=== PATIENT | female | born 2000 | race African-American/Black ===

== ENCOUNTER 2020-03-23 20:21 | Emergency (ER) | payer OTHER ==
[~2020-03-23] VITALS: Ht 160 cm; Wt 53.9 kg
[2020-03-23] MEDS ORDERED: PREN1TAB11 PO (20:25)
[2020-03-23] MEDS ORDERED: ONDANSETRON 4 MG ORAL DISINTEGRATING TAB PO ONE (21:15)
[2020-03-23 21:29] LABS: BASO # 0.1 10^3/uL (0.0-0.2); BASO % 0.4 % (0.0-1.0); EOS # 0.2 10^3/uL (0.0-0.5); EOS % 1.7 % (0.0-3.0); HEMATOCRIT 37.5 % (36.0-47.0); HEMOGLOBIN 12.1 g/dl (12.0-15.5); LYMPH # 2.2 10^3/uL (1.5-5.0); LYMPH % 19.5 % (24.0-44.0); MEAN CORPUSCULAR HEMOGLOBIN 30.1 pg (27.0-33.0); MEAN CORPUSCULAR HGB CONC 32.3 g/dl (32.0-36.5); MEAN CORPUSCULAR VOLUME 93.3 fl (80.0-96.0); MONO # 0.8 10^3/uL (0.0-0.8); MONO % 6.9 % (0.0-5.0); NEUTROPHILS # 8.1 10^3/uL (1.5-8.5); NEUTROPHILS % 71.3 % (36.0-66.0); PLATELET COUNT, AUTOMATED 304 10^3/uL (150-450); RED BLOOD COUNT 4.02 10^6/uL (4.00-5.40); WHITE BLOOD COUNT 11.3 10^3/uL (4.0-10.0)
[2020-03-23 22:23] LABS: ALBUMIN 3.8 GM/DL (3.2-5.2); ALT/SGPT 16 U/L (12-78); BILIRUBIN,TOTAL 0.7 MG/DL (0.2-1.0); BLOOD UREA NITROGEN 8 MG/DL (7-18); CALCIUM LEVEL 9.5 MG/DL (8.5-10.1); CARBON DIOXIDE LEVEL 26 MEQ/L (21-32); CHLORIDE LEVEL 106 MEQ/L (98-107); CREATININE FOR GFR 0.67 MG/DL (0.55-1.30); GLUCOSE, FASTING 84 MG/DL (70-100); HCG, SERUM QUANTITATIVE 68643 MIU/ML; POTASSIUM SERUM 3.5 MEQ/L (3.5-5.1); SODIUM LEVEL 137 MEQ/L (136-145); TOTAL PROTEIN 7.5 GM/DL (6.4-8.2)
[2020-03-23] MEDS ORDERED: ONDA4TAB6 PO (22:31)
[2020-03-23 22:39] VITALS: BP 109/55
== END 2020-03-23 22:40 | disposition home or self-care (01) ==
LOC: M ED 20:21
DX: O21.9 Vomiting of pregnancy, unspecified (principal); Z3A.08 8 weeks gestation of pregnancy
CPT/HCPCS: 80053; 81001; 84702; 85025; 99283; Q0162

== ENCOUNTER 2020-05-31 07:19 | Emergency (ER) | payer OTHER ==
[~2020-05-31] VITALS: Ht 160 cm; Wt 54.1 kg
[~2020-05-31 07:19] MED LIST: ONDA4TAB6 PO; PREN1TAB11 PO
[2020-05-31] MEDS ORDERED: NS 1,000 ML IV ONE (08:00)
[2020-05-31] MEDS ORDERED: FIORICET TAB PO ONE (08:00)
[2020-05-31 08:16] LABS: BASO % 0.4 % (0.0-1.0); EOS # 0.3 10^3/uL (0.0-0.5); EOS % 2.9 % (0.0-3.0); HEMATOCRIT 34.3 % (36.0-47.0); HEMOGLOBIN 11.2 g/dl (12.0-15.5); LYMPH # 1.8 10^3/uL (1.5-5.0); LYMPH % 15.6 % (24.0-44.0); MEAN CORPUSCULAR HEMOGLOBIN 30.9 pg (27.0-33.0); MEAN CORPUSCULAR HGB CONC 32.7 g/dl (32.0-36.5); MEAN CORPUSCULAR VOLUME 94.8 fl (80.0-96.0); MONO # 0.8 10^3/uL (0.0-0.8); MONO % 6.9 % (2.0-8.0); NEUTROPHILS # 8.3 10^3/uL (1.5-8.5); NEUTROPHILS % 73.8 % (36.0-66.0); PLATELET COUNT, AUTOMATED 245 10^3/uL (150-450); RED BLOOD COUNT 3.62 10^6/uL (4.00-5.40); WHITE BLOOD COUNT 11.2 10^3/uL (4.0-10.0)
[2020-05-31 10:12] VITALS: BP 130/77
== END 2020-05-31 10:13 | disposition home or self-care (01) ==
LOC: M ED 07:19
DX: O26.892 Other specified pregnancy related conditions, second trimester (principal); R51.9 Headache, unspecified; Z3A.18 18 weeks gestation of pregnancy

== ENCOUNTER 2020-08-30 00:12 | Outpatient (CLI) | payer OTHER ==
[~2020-08-30] VITALS: Ht 160 cm; Wt 57.3 kg
[2020-08-30 00:28] VITALS: BP 122/71
[2020-08-30] MEDS ORDERED: LR 1,000 ML IV ONE (00:50)
[2020-08-30] MEDS ORDERED: ONDANSETRON 4MG/2ML VIAL IV PRN (00:50)
[2020-08-30 01:28] LABS: HEMATOCRIT 32.8 % (36.0-47.0); HEMOGLOBIN 10.5 g/dl (12.0-15.5); MEAN CORPUSCULAR HEMOGLOBIN 30.2 pg (27.0-33.0); MEAN CORPUSCULAR VOLUME 94.3 fl (80.0-96.0); PLATELET COUNT, AUTOMATED 215 10^3/uL (150-450); RED BLOOD COUNT 3.48 10^6/uL (4.00-5.40); WHITE BLOOD COUNT 11.2 10^3/uL (4.0-10.0)
[2020-08-30] MEDS ORDERED: GI COCKTAIL 50ML BTL(HYOSCYAMINE/MAALOX/LIDOCAINE VISCOUS)(1:3:1) PO ONE (01:30)
[2020-08-30 01:52] LABS: ALBUMIN 2.8 GM/DL (3.2-5.2); ALT/SGPT 19 U/L (12-78); AMYLASE 73 U/L (25-115); BILIRUBIN,TOTAL 0.7 MG/DL (0.2-1.0); BLOOD UREA NITROGEN 4 MG/DL (7-18); CALCIUM LEVEL 8.5 MG/DL (8.5-10.1); CARBON DIOXIDE LEVEL 26 MEQ/L (21-32); CHLORIDE LEVEL 107 MEQ/L (98-107); GLUCOSE, FASTING 78 MG/DL (70-100); LIPASE 79 U/L (73-393); POTASSIUM SERUM 3.4 MEQ/L (3.5-5.1); SODIUM LEVEL 138 MEQ/L (136-145); TOTAL PROTEIN 6.6 GM/DL (6.4-8.2)
[2020-08-30 01:58] LABS: APPEARANCE, URINE CLEAR (CLEAR); BACTERIA, URINE AUTO NEGATIVE (NEGATIVE); BILIRUBIN, URINE AUTO NEGATIVE (NEGATIVE); BLOOD, URINE BLOOD NEGATIVE (NEGATIVE); COLOR, URINE YELLOW (YELLOW); GLUCOSE, URINE (UA) AUTO NEGATIVE (NEGATIVE); KETONE, URINE AUTO NEGATIVE (NEGATIVE); LEUKOCYTE ESTERASE, URINE AUTO NEGATIVE (NEGATIVE); MUCUS, URINE SMALL (NEGATIVE); NITRITE, URINE AUTO NEGATIVE (NEGATIVE); PROTEIN, URINE AUTO NEGATIVE (NEGATIVE); RBC, URINE AUTO 0 /HPF (0-3); SPECIFIC GRAVITY URINE AUTO 1.008 (1.002-1.035); SQUAMOUS EPITHELIAL CELL UR AU 1 /HPF (0-6); UROBILINOGEN, URINE AUTO 0.2 mg/dL (0.0-2.0); WBC, URINE AUTO 0 /HPF (0-3)
[2020-08-30 02:04] LABS: RSV AMPLIFICATION NEGATIVE (NEGATIVE)
[2020-08-30 02:05] VITALS: BP 114/55
--- NOTE | 2020-08-30 02:07 | IPNPDOC ---
Obstetrical Progress Note Date of Service Aug 30, 2020 Subjective Ms. Tagn is a 19yo at 30+4 presenting for nausea and vomiting x1wk that has been worse since Wed where she reports intolerance of solids. She endorsed epigastric burning and association with eating. She denied RUQ pain. She also reports dysuria and cramps. She denied diarrhea, chest pain, SOB, F/C/body aches, vaginal bleeding, vaginal dc, LOF, decreased FM, contractions. She denied sick contacts. Objective Vital Signs Date Time Temp Pulse Resp B/P (MAP) Pulse Ox O2 Delivery O2 Flow Rate FiO2 08/30/20 00:31 98.8 82 16 Assessment Heart Rate (FHR): 140 Variability: Moderate Accelerations: Positive Decelerations: None Heart Rate Tracing: Category I Tocometer Contractions: Yes Frequency: irregular Sterile Vaginal Examination Dilation: None Cervical Consistency: Medium Cervical Position: Posterior Postion/Presentation: Cephalic presentation Assessment and Plan Status: Reassuring Additional Comments Ms. Tang is a 19yo at 30+4 presenting for nausea and vomiting x1wk that h as been worse since Wed where she reports intolerance of solids. She endorsed GERD and dysuria. VS normal. NST reactive and appropriate for gestational age. Irregular contractions noted on toco. On exam she was C/T/H and unchanged on 2h repeat exam, copious white discharge was noted protruding from the vagina. JEN/WP was performed showing abundant budding yeast. TVUS revealed a 4.3cm cervix without significant changes with valsalva. CBC, CMP, amylase, lipase were normal. UA was without signs of infection of ketonuria. UCx pending. PTD is unlikely given these findings at this time. For her N/V she was given 1L IVF, zofran, and a GI cocktail and was able to tolerated solids. She was given single dose fluconazole for her vaginal candidiasis. - outpatient script given for omeprazole and zofran - educated on BRAT diet - educated on routine OB return precautions - patient to follow up at next FREEMAN DOWLING DO Aug 30, 2020 02:07
[2020-08-30] MEDS ORDERED: FLUCONAZOLE 50MG TABLET PO ONE (02:10)
[2020-08-30 03:05] VITALS: BP 114/56
== END 2020-08-30 04:35 | disposition home or self-care (01) ==
LOC: M LDO 00:12
PROVIDERS: ATTEND Obstetrics & Gynecology
DX: O21.8 Other vomiting complicating pregnancy (principal); Z3A.30 30 weeks gestation of pregnancy; O23.593 Infection of other part of genital tract in pregnancy, third trimester; B37.9 Candidiasis, unspecified; O99.613 Diseases of the digestive system complicating pregnancy, third trimester; K21.9 Gastro-esophageal reflux disease without esophagitis
CPT/HCPCS: 36415; 59025; 76815; 80053; 81001; 82150; 83690; 85027; 87086; 87631; 96361; 96365; 96366; G0378; G0463; J2405

== ENCOUNTER 2020-10-12 22:01 | Outpatient (CLI) | payer OTHER ==
[~2020-10-12] VITALS: Ht 160 cm; Wt 61.0 kg
[2020-10-12 22:22] VITALS: BP 130/70
[2020-10-12] MEDS ORDERED: CYCLOBENZAPRINE 10MG TABLET PO ONE (22:45)
[2020-10-13 01:39] VITALS: BP 125/59
--- NOTE | 2020-10-13 01:56 | IPNPDOC ---
Text Note Date of Service The patient was seen on 10/13/20. NOTE 19 yo at 37+6 weeks gestation presented to triage with contractions and low back pain. Denies fevers/chills, SOB, chest pain, dysuria, or n/v. Denies bleeding, LOF, or discharge. Endorses regular movement. Chaperoned by RN Vitals - VSS General - AAOX3, sitting up in bed Abdomen - Gravid uterus, no fundal tenderness Cervix - Cl/thick/high, posterior FHR tracing - Cat I with moderate variability, +accels, no decels. Ctx sporadic on toco. Labs: UA - unremarkable UA clean. Not in active labor. Patient declined repeat cervical exam >2 hours after first. Received 10mg flexeril in triage with improvement in symptoms. Discharged home with return precautions. All questions answered. 45 minutes Guillermo VS,Robbie, I+O VS, Robbie, I+O Vital Signs Date Time Temp Pulse Resp B/P (MAP) Pulse Ox O2 Delivery O2 Flow Rate FiO2 10/12/20 22:22 95 130/70 (90) 10/12/20 22:21 98.8 18 CARI VINSON DO Oct 13, 2020 01:56
== END 2020-10-13 01:54 | disposition home or self-care (01) ==
LOC: M LDO 22:01
PROVIDERS: ATTEND Obstetrics & Gynecology
DX: O26.893 Other specified pregnancy related conditions, third trimester (principal); M54.5 Low back pain; Z3A.37 37 weeks gestation of pregnancy
CPT/HCPCS: 59025; 81001; G0463

== ENCOUNTER 2020-10-21 17:06 | Outpatient (CLI) | payer OTHER ==
[~2020-10-21] VITALS: Ht 160 cm; Wt 61.5 kg
[2020-10-21 17:23] VITALS: BP 128/74
[2020-10-21 18:36] VITALS: BP 125/76
--- NOTE | 2020-10-21 19:38 | HPE ---
HISTORY AND PHYSICAL DATE OF ADMISSION: 10/21/2020 HISTORY OF PRESENT ILLNESS: A 19-year-old 1 para 0, LMP 01/22/2020, EDC is October 28, 2020 by ultrasound at 10 weeks, 0 days, April 03, 2020. She was seen in the office today having come from [facility]. She was checked at the [facility] visit, was found to be 2 cm with a little bit of show, she came here having contractions 1 to 5 minutes apart, mild in nature. She was examined 4 hours later, found to be 2 cm posterior, -3 station and thick. No vaginal bleeding or discharge. PAST MEDICAL HISTORY: She had an echogenic focus which was reviewed and found to be negative, she is on omeprazole and Pepcid for GI issues. She has chronic anemia and she had some suggestion of elevated bile acid which were normal after review. She is GBS positive in her urine. PHYSICAL EXAMINATION: On examination she does not appear in distress. 's __ is 40, vertex. Bowel sounds are active, Category 1 strip, moderate variability, baseline was normal. She has an occasional contraction. Blood pressure is 128/74, respirations are 18, pulse is 98, temperature is 98.6. PLAN: Hydrate her. She has had nothing to eat or drink all day. In reviewing her lab work she is O positive, HIV negative, hepatitis negative, RPR negative, rubella immune, varicella immune. Urine was negative. Gonorrhea and chlamydia were negative. A one hour glucose was 100. Her urine was GBS positive. ASSESSMENT: In summary, we have a term gestation with uterine irritability after pelvic examination at the office. She was discharged with instructions, premature rupture of membranes, bleeding, contractions, 5 to 7 minutes apart, moderate intensity, lasting 60 seconds. Should anything change, she is to call back and review with the provider on-call. Patient was discharged undelivered. Has an appointment in the office next week.
== END 2020-10-21 18:47 | disposition home or self-care (01) ==
LOC: M LDO 17:06
PROVIDERS: ATTEND Obstetrics & Gynecology
DX: O26.893 Other specified pregnancy related conditions, third trimester (principal); O62.0 Primary inadequate contractions; Z3A.00 Weeks of gestation of pregnancy not specified
CPT/HCPCS: 59025; G0378; G0463

== ENCOUNTER 2020-10-24 09:50 | Outpatient (CLI) | payer OTHER ==
[~2020-10-24] VITALS: Ht 160 cm; Wt 60.7 kg
[2020-10-24 10:07] VITALS: BP 149/95
[2020-10-24 10:30] VITALS: BP 162/91
[2020-10-24 11:24] LABS: HEMATOCRIT 35.9 % (36.0-47.0); HEMOGLOBIN 11.8 g/dl (12.0-15.5); MEAN CORPUSCULAR HGB CONC 32.9 g/dl (32.0-36.5); MEAN CORPUSCULAR VOLUME 91.3 fl (80.0-96.0); PLATELET COUNT, AUTOMATED 266 10^3/uL (150-450); RED BLOOD COUNT 3.93 10^6/uL (4.00-5.40); WHITE BLOOD COUNT 10.4 10^3/uL (4.0-10.0)
[2020-10-24 12:22] LABS: APPEARANCE, URINE CLEAR (CLEAR); BACTERIA, URINE AUTO 1+ (NEGATIVE); BILIRUBIN, URINE AUTO NEGATIVE (NEGATIVE); BLOOD, URINE BLOOD NEGATIVE (NEGATIVE); COLOR, URINE STRAW (YELLOW); GLUCOSE, URINE (UA) AUTO NEGATIVE (NEGATIVE); KETONE, URINE AUTO NEGATIVE (NEGATIVE); LEUKOCYTE ESTERASE, URINE AUTO NEGATIVE (NEGATIVE); NITRITE, URINE AUTO NEGATIVE (NEGATIVE); PROTEIN, URINE AUTO NEGATIVE (NEGATIVE); RBC, URINE AUTO 0 /HPF (0-3); SPECIFIC GRAVITY URINE AUTO 1.001 (1.002-1.035); SQUAMOUS EPITHELIAL CELL UR AU 1 /HPF (0-6); UROBILINOGEN, URINE AUTO 0.2 mg/dL (0.0-2.0); WBC, URINE AUTO 0 /HPF (0-3)
[2020-10-24 12:33] LABS: CREATININE,RANDOM URINE 20.7 MG/DL; TOTAL PROTEIN,RANDOM URINE 5.1 MG/DL (0.0-12.0)
[2020-10-24] MEDS ORDERED: IRON27TA2 PO (12:41)
[2020-10-24] MEDS ORDERED: HOME MED LIST COMPLETE! XX SCH (12:45)
[2020-10-24 14:14] LABS: ALT/SGPT 35 U/L (12-78); BILIRUBIN,TOTAL 0.8 MG/DL (0.2-1.0); CREATININE FOR GFR 0.59 MG/DL (0.55-1.30); LDH LACTATE DEHYDROGENASE 169 U/L (84-246)
--- NOTE | 2020-10-24 15:42 | IPNPDOC ---
Text Note Date of Service The patient was seen on 10/24/20. NOTE S: 19yo kenrick [id number] @39+4 presenting to triage with c.o contractions. Denies bleeding, LOF, states reassuring FM. Denies headache, vision changes, RUQ pain. O: Initial elevation in blood pressures noted on arrival which spontaneously resolved with rest. RNST, fhr 130s, mod variability, +accel, -decel, irregular contractions, mild to palpation Cervical exam: /-3 posterior Pre E labs completed with normal CBC, LFT, urine P/C ratio was noted to be mildly elevated at 0.[address] Garsia to review plan of care for patient to complete 24hr urine Protein and return for BP, NST on 25Oct2020, he concurs with the plan. Pt requested repeat cervical exam: minimally changed /-3 posterior A: Isolated elevated blood pressure without diagnosis of hypertension contractions at term [id number] P: Discharge to home with labor and Pre e precautions Reviewed instructions for completion of 24 hour urine protein and return for BP check, and NST on [id number] Reviewed comfort measures and preparation for labor with expressed understanding of reasons to return and contact information. VS,Fishbone, I+O VS, Fishbone, I+O Laboratory Tests 10/24/20 11:11 Vital Signs Date Time Temp Pulse Resp B/P (MAP) Pulse Ox O2 Delivery O2 Flow Rate FiO2 10/24/20 10:30 90 162/91 (114) 10/24/20 10:07 98.7 16 RUCHI TALBOT CNM Oct 24, 2020 15:42
== END 2020-10-24 15:25 | disposition home or self-care (01) ==
LOC: M LDO 09:50
PROVIDERS: ATTEND Registered Nurse
DX: O26.893 Other specified pregnancy related conditions, third trimester (principal); R03.0 Elevated blood-pressure reading, without diagnosis of hypertension; Z3A.39 39 weeks gestation of pregnancy
CPT/HCPCS: 59025; 81001; 82247; 82565; 82570; 83615; 84156; 84450; 84460; 84550; 85027; 86780; 86850; 86900; 86901; G0378; G0463

== ENCOUNTER 2020-10-25 15:40 | Outpatient (CLI) | payer OTHER ==
[~2020-10-25] VITALS: Ht 160 cm; Wt 60.6 kg
[~2020-10-25 15:40] MED LIST changes: +IRON27TA2 PO
[2020-10-25 15:54] VITALS: BP 120/84
--- NOTE | 2020-10-25 16:07 | IPNPDOC ---
Obstetrical Progress Note Date of Service Oct 25, 2020 Assessment and Plan Additional Comments S: 19yo kenrick [id number] @39+5 presenting to triage for a BP check. She had a single elevated BP yesterday when she came for a labor check but per report it resolved on repeat check. Denies bleeding, LOF, states reassuring FM. Denied contractions. Denies headache, vision changes, RUQ pain. Her BP is normal. AAOX3 NAD CTA BL RRR DTRs 2+ BL no clonus abd gravid and non-tender normal affect and insight Will call if 24h urine protein is abnormal. Discharge to home with labor and Pre e precautions. Reviewed comfort measures and preparation for labor with expressed understanding of reasons to return and contact information. FREEMAN HERRERA DO Oct 25, 2020 16:07
[2020-10-25 19:32] LABS: URINE TOTAL PROTEIN < 5.0 MG/DL (0-12)
[2020-10-25 21:24] LABS: TOTAL VOLUME, URINE 4800 ML
== END 2020-10-25 16:04 | disposition home or self-care (01) ==
LOC: M LDO 15:40
PROVIDERS: ATTEND Obstetrics & Gynecology
DX: O26.893 Other specified pregnancy related conditions, third trimester (principal); Z3A.39 39 weeks gestation of pregnancy; R03.0 Elevated blood-pressure reading, without diagnosis of hypertension
CPT/HCPCS: 81050; 84156; G0378; G0463

== ENCOUNTER 2020-10-26 12:32 | Inpatient (IN) | payer OTHER ==
[~2020-10-26] VITALS: Ht 160 cm; Wt 60.6 kg
[2020-10-26] VITALS (49 sets, daily range): BP systolic 102–167; BP diastolic 56–97
[2020-10-26] MEDS ORDERED: LACTATED RINGER'S 1000 ML IV STA (13:12)
[2020-10-26] MEDS ORDERED: PENICILLIN G POTASSIUM IV 5 MU in D5W MINI-BAG PLUS 100 ML IV STA (13:12)
[2020-10-26] MEDS ORDERED: LIDOCAINE 1% MDV 20ML VIAL INFIL PRN (13:15)
[2020-10-26] MEDS ORDERED: CARBOPROST TROMETHAMINE 250 MCG/ML AMP IM PRN (13:15)
[2020-10-26] MEDS ORDERED: OXYTOCIN INJ 10 UNITS/ML VIAL (J2590) IM PRN (13:15)
[2020-10-26] MEDS ORDERED: TRANEXAMIC ACID INJection 1,000 MG in NS 100 ML IV PRN (13:15)
[2020-10-26] MEDS ORDERED: METHYLERGONOVINE MALEATE 0.2 MG/ML VIAL (J2210) IM PRN (13:15)
[2020-10-26] MEDS ORDERED: OXYTOCIN DRIP 30 UNITS in IV 1 EA IV PRN ×4 (13:15)
[2020-10-26] MEDS ORDERED: OXYTOCIN DRIP 30 UNITS in IV 1 EA IV SCH (13:15)
--- NOTE | 2020-10-26 13:33 | HPEPDOC ---
Obstetrical History & Physical General Date of Admission 10/26/2020 History of Present Illness The patient is a 19 yo G1 at 39+5 week gestation by LMP C/W 10weekS ultrasound who is admitted at term in labor with a single elevted BP. She denies any vaginal bleeding, abnormal vaginal discharge, leakage of fluids, urinary symptoms, or regular contractions. She denies any new headaches, visual abnormalities, chest pain, worsening dyspnea, facial swelling, or upper extremity swelling. At this time, she continues to report regular movement. Information Provided By: Patient Care Care: Good Care Dating Final EDC: Oct 28, 2020 Final EDC by: LMP LMP: Jan 22, 2020 1st Trimester Date: Apr 03, 2020 Weeks + Days: 10 EGA at Admission: 39 Antepartum Course Diagnos(e)s 1. Anemia 2. GBS Positive 3. Single elevated BP on admission 4. Inadequate weight gain #14lb Height (inches): 63 Pre- weight (lbs.): 119 Admission Weight (lbs.): 133 Change in Weight (lbs.): 14 Past Medical History Past Obstetrical History : Past Obstetrical History: Primgravida Complications: No DOCK BUILDER History: No pertinent history Past Medical History Medical History denies Surgical History: Denies/None Family History Significant Family History: No pertinent family hx Social History Marital Status: Family situation: Spouse/partner home Psychosocial History: No pertinent psych hx * Smoker: non-smoker Alcohol: Denies Drugs: denies Abuse Violence Screening Have you been hit/kicked/slapp: No Have you been sexually assault: No Imunizations Tdap status: current Influenza Status: needs Allergies Coded Allergies: No Known Allergies (Unverified , 03/23/20) Medications Scheduled Ferrous Gluconate (Iron) 236 Mg Tablet, 1 TAB PO DAILY Vit No.124/Iron/Folic ( Vitamin Tablet) 1 Each Tablet, 1 TAB PO DAILY Physical Examination Physical Examination GENERAL: Alert and oriented times three. BREAST: . ABDOMEN: Gravid and non-tender to touch. FETUS: Is vertex (VTX) by sterile vaginal examination (SVE) HEART RATE: Regular rate and rhythm. LUNGS: Clear to auscultation (CTA). EXTREMITIES: No edema. No clonus. SVE: 4/50/-2 Vital Signs/I&O Vital Signs Date Time Temp Pulse Resp B/P (MAP) Pulse Ox O2 Delivery O2 Flow Rate FiO2 10/26/20 12:43 98.0 104 18 140/92 (108) Pertinent Laboratoy Data Blood Type: O+ RBC Antibody Screen: Negative HIV: Negative Hepatitis B: Negative Hepatitis C: Unknown Rapid Plasma Reagin: Immune Varicella: Immune Chlamydia/Gonorrhea: Negative Group B Streptococcus: Positive Quad Screen Test: Unknown Cystic Fibrosis: Unknown Glucose Tolerance Test: 100 Anatomy Ultrasound Placenta Location: Posterior Normal Anatomy: Yes Steroid Therapy Steroid Therapy: No Vaginal Examination Dilation: 4 cm Effacement: 50% Station: -2 Cervical Consistency: Medium Cervical Position: Middle Presentation: Cephalic presentation Assessment Heart Rate (FHR): 140 Variability: Moderate Accelerations: Positive Decelerations: None Tocometer Contractions: Yes Frequency: regular Duration: less than 60 seconds Strength: palpated as moderate Multi-drug resistant Organism: No history of MDRO Assessment/Plan Assessment Assessment: The patient is a 19 yo G1 at 39+5 week gestation by LMP C/W 10weekS ultrasound who is admitted at term in labor with a single elevted BP. Hemodynamically stable. reactive NST. APC: 1. ANEMIA 2. SINGLE ELEVATED BP on admission 3. GBS positive- no PCN allergies SVE: /-2 GBS POS Cephalic by Exam EFW 3000g RH POS Plan Plan: - Admit to L&D. - Consent signed and given to RN - CBC with type and screen. - EFM x2 - Anesthesia to see - Risks of augmentation with Pitocin discussed with patient. - GBS Positive. PCN ordered Labor and Delivery Counseling We will deliver your baby through the vagina with possible assistance of forceps or vacuum device if needed for maternal or indications. Forceps and vacuum are devices that can assist with vaginal delivery when normal pushing efforts cannot achieve delivery on their own or when delivery is needed in an emergency for baby's well-being. Medications may be required to induce or augment (help) your labor in order to achieve a vaginal delivery. An episiotomy may be required to help your baby to delivery vaginally. You may also require repair of any lacerations or tears of your vagina or vulva that are caused by delivery. In some cases, emergencies can occur that require an emergency section delivery so quickly that there may not be enough time to stop and complete consent forms for section. Understand that if this occurs, your providers will discuss the need for a section with you before they proceed with surgery. section is the delivery of your baby through an incision in your abdomen. In some situations, section may be safer to mom and baby than continuing labor and is only performed when clinically indicated. Risks of vaginal delivery include but are not limited to: Bleeding, infection, injury to the vagina, pelvic structures, injury to baby, damage to the uterus, reactions to anesthesia, uterine rupture, risk of hysterectomy for life threatening bleeding, or . Medications used to induce or augment labor may increase your risk for infection, uterine tachysystole, uterine rupture, heart rate abnormalities, need for emergency delivery or possible hysterectomy, and hemorrhage. Additional risks for use of forceps and vacuum include: increased risk of perineal and vaginal lacerations, risk of urinary or bowel incontinence, increased risk of injury to baby with bruising, scratches, hematomas on the head, or intracranial bleeding. BHAVIK OCASIO MD Oct 26, 2020 13:33
[2020-10-26 13:39] LABS: HEMATOCRIT 32.8 % (36.0-47.0); HEMOGLOBIN 10.7 g/dl (12.0-15.5); MEAN CORPUSCULAR HEMOGLOBIN 29.6 pg (27.0-33.0); MEAN CORPUSCULAR HGB CONC 32.6 g/dl (32.0-36.5); MEAN CORPUSCULAR VOLUME 90.6 fl (80.0-96.0); PLATELET COUNT, AUTOMATED 259 10^3/uL (150-450); RED BLOOD COUNT 3.62 10^6/uL (4.00-5.40); WHITE BLOOD COUNT 9.9 10^3/uL (4.0-10.0)
[2020-10-26] MEDS ORDERED: FENTANYL 2MCG/ML ROPIVACAINE 0.2% IN 0.9% NACL 100ML IVBAG As Ordered ONE ×2 (14:09→22:58)
[2020-10-26] MEDS ORDERED: ONDANSETRON 4MG/2ML VIAL IV PRN (14:20)
[2020-10-26] MEDS ORDERED: NALOXONE INJ 0.4MG/1ML VIAL (J2310 PER 1MG) IV PRN (14:20)
[2020-10-26] MEDS ORDERED: REFRIGERATOR IV KEYS XX PRN (14:20)
[2020-10-26] MEDS ORDERED: EPIDURAL/PCA KEYS XX PRN (14:20)
[2020-10-26] MEDS ORDERED: EPIDURAL COMMENT XX SCH (14:20)
[2020-10-26] MEDS ORDERED: diphenhydrAMINE 50MG/ML VIAL (J1200) IV PRN (14:20)
[2020-10-26] MEDS ORDERED: LACTATED RINGER'S 1000 ML IV PRN (14:20)
[2020-10-26] MEDS ORDERED: ePHEDrine SULFATE 25 MG/5 ML(5MG/ML) SYRINGE IV PRN (14:20)
[2020-10-26] MEDS: FENTANYL/ROPIVACAINE/NACL BAG 100 ML EPIDURAL SCH ×2 (15:21→23:02)
[2020-10-26] MEDS: PENICILLIN G POTASSIUM IV 2.5 MU in IV 1 EA IV SCH ×2 (17:29→21:39)
[2020-10-26] MEDS: LR 1,000 ML IV SCH ×2 (17:29→21:39)
[2020-10-27] VITALS (34 sets, daily range): BP systolic 101–171; BP diastolic 57–95
--- NOTE | 2020-10-27 00:54 | IPNPDOC ---
Obstetrical Progress Note Date of Service Oct 27, 2020 Subjective to room for assessment. patient is comfortable with epidural in place. fht: 145, mod va,+accels, -decels---cat I tracing TOCO: 4-10, PIT AT 12 SVE: 5/90/-1, AROM Cleat A/P Latent labor. cat I tracing. Arom with clear fluids, pit halved after AROM. continue active management of labor. anticipate . Objective Vital Signs Date Time Temp Pulse Resp B/P (MAP) Pulse Ox O2 Delivery O2 Flow Rate FiO2 10/26/20 22:53 97.6 67 18 110/62 (78) BHAVIK OCASIO MD Oct 27, 2020 00:54
[2020-10-27] MEDS: PENICILLIN G POTASSIUM IV 2.5 MU in IV 1 EA IV SCH ×4 (01:51→13:45)
[2020-10-27] MEDS: LR 1,000 ML IV SCH ×4 (05:47→18:05)
--- NOTE | 2020-10-27 06:41 | IPNPDOC ---
Obstetrical Progress Note Date of Service Oct 27, 2020 Subjective RN check RN check @ 0629 fht: 145, mod nixon,+ accels,-decel--cat i TRACING SVE: /-1 TOCO: 4-07/22/ @ 16 A/P ACTIVE LABOR, CAT I tracing. continue IOL. Objective Vital Signs Date Time Temp Pulse Resp B/P (MAP) Pulse Ox O2 Delivery O2 Flow Rate FiO2 10/27/20 06:23 98.0 98 18 149/95 (113) BHAVIK OCASIO MD Oct 27, 2020 06:41
[2020-10-27] MEDS ORDERED: FENTANYL 2MCG/ML ROPIVACAINE 0.2% IN 0.9% NACL 100ML IVBAG As Ordered ONE (08:15)
[2020-10-27] MEDS: FENTANYL/ROPIVACAINE/NACL BAG 100 ML EPIDURAL SCH (08:17)
--- NOTE | 2020-10-27 09:01 | IPNPDOC ---
Obstetrical Progress Note Date of Service Oct 27, 2020 Subjective to room for assessment fht : 130, mod nixon,+accels, occasional late decel--cat II tracing SVE: 8/C/0, FSE, IUPC Placed toco: 3-5/10 a/p active labor. progressing well. IUPC placed for pit titration, gaol MVU 220-250. CONTINUE IOL. Anticipate . Objective Vital Signs Date Time Temp Pulse Resp B/P (MAP) Pulse Ox O2 Delivery O2 Flow Rate FiO2 10/27/20 08:02 68 101/57 (72) 10/27/20 07:14 98.2 16 BHAVIK OCASIO MD Oct 27, 2020 09:01
[2020-10-27] MEDS ORDERED: AZITHROMYCIN INJ 500 MG, VIAL MATE ADAPTER 1 EACH in NS 250 ML IV ONE (14:00)
[2020-10-27] MEDS ORDERED: ceFAZolin 1GM VIAL (J0690 PER 500MG) As Ordered ONE (14:00)
[2020-10-27] MEDS ORDERED: BICITRA 30ML SOLN UDC PO ONE (14:00)
[2020-10-27] MEDS ORDERED: ceFAZolin SOD 1 GM in IV 1 EA IV ONE (14:00)
[2020-10-27] MEDS ORDERED: AZITHROMYCIN INJ 500MG VIAL (J0456 PER 500MG) As Ordered ONE (14:01)
[2020-10-27] MEDS ORDERED: MORPHINE PRES-FREE INJ 10 MG/10 ML VIAL (J2274) As Ordered ONE (14:27)
[2020-10-27] MEDS ORDERED: LIDOCAINE 2% W/EPINEPHRINE 20ML VIAL **PRES FREE As Ordered ONE (14:28)
[2020-10-27] MEDS ORDERED: OXYTOCIN 30 UNITS IN 0.9% NaCl 500ML IV BAG (J2590) As Ordered ONE ×2 (14:29→16:21)
--- NOTE | 2020-10-27 14:31 | IPNPDOC ---
Obstetrical Progress Note Date of Service Oct 27, 2020 Subjective to room for assessment. patient continues to be comfortable in bed FHT: 140, MOD ROYER<+ACCELS, -Dcel...cat I tracing [place]: 2-4/10, mvu 50-100 sve: 8/c/0 a/p active labor, cat I tracing. patient unchanged for 6hrs with inadequate contractions. discussed diagnoses of arrest of dilation and decommandation of cesaream delivery at this time. patiemt amd family are in agreement with plan of care. OBtained consent for cd and blood transfusion. -monologist to the OR FOR CD -GIVE 1G ANCEF, 500MG AZITHROMYCIN, BICITRA -PROCEED TO THE OR WHEN ANESTHESIA IS READY Objective Vital Signs Date Time Temp Pulse Resp B/P (MAP) Pulse Ox O2 Delivery O2 Flow Rate FiO2 10/27/20 13:25 75 133/84 (100) 10/27/20 12:32 98.2 10/27/20 12:25 16 BHAVIK OCASIO MD Oct 27, 2020 2:31 pm
[2020-10-27] MEDS ORDERED: ONDANSETRON 4MG/2ML VIAL As Ordered ONE (15:34)
[2020-10-27] MEDS ORDERED: PHENYLephrine 500MCG 5ML (100MCG/ML) SYRINGE As Ordered ONE (15:34)
[2020-10-27] MEDS ORDERED: dexameTHASONE 4 MG/ML 1ML VIAL (J1100 PER 1MG) As Ordered ONE (15:34)
[2020-10-27] MEDS ORDERED: KETOROLAC 60MG 2ML VIAL As Ordered ONE (15:35)
[2020-10-27] MEDS ORDERED: NALOXONE INJ 0.4MG/1ML VIAL (J2310 PER 1MG) IV PRN ×2 (15:40)
[2020-10-27] MEDS ORDERED: ONDANSETRON 4MG/2ML VIAL IV PRN ×3 (15:40→20:20)
[2020-10-27] MEDS ORDERED: METOCLOPRAMIDE INJ 10MG/2ML VIAL (J2765 PER 1) IV PRN (15:40)
[2020-10-27] MEDS ORDERED: OXYTOCIN INJ 10 UNITS/ML VIAL (J2590) As Ordered ONE (15:58)
[2020-10-27] MEDS ORDERED: OXYTOCIN DRIP 30 UNITS in IV 1 EA IV ONE (16:30)
[2020-10-27] MEDS ORDERED: HYDROMORPHONE HCL 0.5 MG/ 0.5 ML SYRINGE (J1170 PER 1) IV PRN (16:50)
[2020-10-27] MEDS ORDERED: fentaNYL 100 MCG/2 ML INJECTION (J3010) IV PRN (16:50)
[2020-10-27] MEDS ORDERED: MEPERIDINE INJ 25 MG/ML VIAL (J2175) IV PRN (16:50)
[2020-10-27] MEDS ORDERED: oxyCODONE 5MG TAB PO PRN ×2 (16:50→20:20)
[2020-10-27] MEDS ORDERED: NALBUPHINE HCL 10 MG/ML AMP (J2300) IV PRN (16:50)
[2020-10-27] MEDS ORDERED: LOMOTIL 2.5MG/0.025MG TABLET PO ONE (18:00)
[2020-10-27] MEDS: diphenhydrAMINE 50MG/ML VIAL (J1200) IV PRN (19:30)
[2020-10-27] MEDS ORDERED: PERCOCET 5MG/325MG TAB PO ONE (20:10)
[2020-10-27] MEDS ORDERED: KETOROLAC 30 MG/ML 1ML VIAL IV ONE (20:10)
[2020-10-27] MEDS ORDERED: ACETAMINOPHEN 500 MG TAB PO PRN (20:20)
[2020-10-27] MEDS ORDERED: SIMETHICONE 80MG CHEW TAB PO PRN (20:20)
[2020-10-27] MEDS ORDERED: MOM 30ML SUSPENSION UDC PO PRN (20:20)
[2020-10-27] MEDS ORDERED: PROMETHAZINE 25 MG TAB PO PRN (20:20)
[2020-10-27] MEDS ORDERED: ANUSOL HC CREAM 30GM TOP PRN (20:20)
[2020-10-27] MEDS ORDERED: OXYTOCIN DRIP 30 UNITS in IV 1 EA IV SCH (20:20)
[2020-10-27] MEDS ORDERED: PERCOCET 5MG/325MG TAB PO PRN (20:20)
--- NOTE | 2020-10-27 20:33 | ROOPDOC ---
[facility] Report Of Operation Report of Operation DATE OF PROCEDURE: 10/27/20 PREPROCEDURE DIAGNOSES: arrest of dilation, gestational HTN POSTPROCEDURE DIAGNOSES: same as above PROCEDURE PERFORMED: Primary low transverse delivery SURGEON: Salvador Bustamante MD CLINICAL STUDIES SPECIALIST: Miguelito Castillo MD- without his assistance this surgery would not have been possible ANESTHESIA: epidural ESTIMATED BLOOD LOSS: Approximately 600 mL. COMPLICATIONS: none FINDINGS: pfannenstiel incision. normal uterus, ovaries and fallopian tubes. low transverse hysterotomy, delivery of male infant apgars 9/9 weight 3660g, 8lb1oz SPECIMENS REMOVED: placenta PROCEDURE NOTE: given 1g of ancef, 500mg azithromycin, UOP 175ML DESCRIPTION OF PROCEDURE: . The patient was taken to the operating room where epidural anesthesia was found to be adequate. She was then prepped and draped in the normal sterile fashion in the dorsal supine position with a leftward tilt. A Pfannenstiel skin incision was then made with the scalpel and carried through to the underlying layer of fascia. The fascia was incised in the midline and the incision extended laterally with the curved Harvey scissors. The superior aspect of the fascial incision was then grasped with the Roger clamps, elevated, and the underlying rectus muscles dissected off bluntly with the scalpel used in the midline. Attention was then turned to the inferior aspect of this incision which, in a similar fashion, was grasped, tented up with Kocker clamps, and the rectus muscles dissected off bluntly. The rectus muscles were then in the midline, and the peritoneum identified and entered bluntly. The peritoneal opening was additionally extended superiorly and laterally by manual traction with good visualization of the bladder. the mobius retractor was then inserted and a bladder flap was created. The lower uterine segment incised in a transverse fashion with the scalpel. The uterine incision was then bluntly extended caudally and cephalad with manual traction and the infants head delivered atraumatically followed by the body. The cord was clamped and cut and handed to awaiting pediatricians. Cord segment obtained and cord blood sent for gases. The placenta was then removed with gentle traction. The uterus was exteriorized and cleared of all clots and debris. The uterine incision was closed with 0- Monocryl in a running locked fashion. A second imbricating layer with 0- Monocryl was placed with excellent hemostasis. An additional [id number] suture using 0-vicryl was placed in the midline of hysterotomy for additional hemostasis. Normal uterus, ovaries and tubes were noted. the retractor was removed then the uterus was returned into the abdomen The gutters were cleared of all clots and the hysterotomy closure was inspected with excellent hemostasis noted again. The fascia was closed with 0-vicryl in a running fashion. The suprafascial area was irrigated and the skin was closed with 3-0 quill monoderm suture. optiforam dressing was applied. The patient tolerated the procedure well. Sponge, lap and needle counts were c orrect times two. The patient was taken to the recovery room in stable condition. BHAVIK OCASIO MD Oct 27, 2020 6:21 pm
[2020-10-27] MEDS: DOCUSATE SODIUM 100MG CAPSULE PO SCH (21:29)
[2020-10-27] MEDS: NALBUPHINE HCL 10 MG/ML AMP (J2300) IV PRN (21:31)
[2020-10-28] MEDS: diphenhydrAMINE 50MG/ML VIAL (J1200) IV PRN ×2 (00:20→12:40)
[2020-10-28 02:00] VITALS: BP 126/65
[2020-10-28] MEDS: KETOROLAC 30 MG/ML 1ML VIAL IV SCH ×3 (02:45→15:22)
[2020-10-28 06:00] VITALS: BP 121/69
[2020-10-28 06:37] LABS: HEMATOCRIT 26.1 % (36.0-47.0); MEAN CORPUSCULAR HGB CONC 32.6 g/dl (32.0-36.5); MEAN CORPUSCULAR VOLUME 92.2 fl (80.0-96.0); PLATELET COUNT, AUTOMATED 226 10^3/uL (150-450); RED BLOOD COUNT 2.83 10^6/uL (4.00-5.40); WHITE BLOOD COUNT 18.4 10^3/uL (4.0-10.0)
[2020-10-28 06:49] LABS: HEMOGLOBIN 8.5 g/dl (12.0-15.5)
--- NOTE | 2020-10-28 07:20 | IPNPDOC ---
Progress Note Date of Service: Oct 28, 2020 Day#: 1 Progress Note SUBJECT: VAISHALI is a 20 YO POD1 S/P PLCD for arrest of dilation of male apgars 9/9 weight 3660g, 8lb1oz, uncomplicated procedure. She has been ambulating, voiding spontaneously without issue and tolerating regular diet. Breast feeding without issue. Reports lochia is like a normal period. Patient was diagnosed with GHTN on admission and her BP has remained in the mild range to normal range. had once severe range BP that did not persist. she denies any s/s of pre e OBJECTIVE: VITAL SIGNS: Within normal limits, afebrile. Alert and oriented times three. Breath sounds clear to auscultation. Heart rate: Regular rate and rhythm, no murmurs, rubs or gallops. Abdomen: Fundus firm at U-2. Soft, NTTP. incision xxxx [Minimal] lochia. ASSESSMENT: VAISHALI is a20 YO POD1 S/P PLCD for arrest of dilation of male apgars 9/9 weight 3660g, 8lb1oz, uncomplicated procedure. Vitals within normal limits, afebrile, hemodynamically stable with no evidence of infection. PLAN: 1. Discharge to home tomorrow 2. oxycodone, Tylenol and Motrin for pain. 3. Encourage breast feeding and ambulation. 4. minipill for contraception for now, 5. Routine PP visit in 2 and 6 weeks in clinic. 6. Discussed return precautions at length. VS, I&O, 24H, Fishbone Vital Signs/I&O Vital Signs Date Time Temp Pulse Resp B/P (MAP) Pulse Ox O2 Delivery O2 Flow Rate FiO2 10/28/20 02:00 99.1 78 18 126/65 (85) 99 Room Air I&O- Last 24 Hours up to 6 AM 10/28/20 05:59 Intake Total 8854.7 ml Output Total 99421 ml Balance -1645.3 ml BHAVIK OCASIO MD Oct 28, 2020 5:51 am
[2020-10-28] MEDS: PRENATAL VITAMINS CHEWABLE TABLET PO SCH (08:59)
[2020-10-28] MEDS: DOCUSATE SODIUM 100MG CAPSULE PO SCH ×2 (08:59→21:15)
[2020-10-28] MEDS: NALBUPHINE HCL 10 MG/ML AMP (J2300) IV PRN (09:00)
[2020-10-28 10:00] VITALS: BP 145/71
[2020-10-28 14:00] VITALS: BP 111/56
[2020-10-28 18:00] VITALS: BP 115/79
[2020-10-28 22:00] VITALS: BP 137/73
[2020-10-28] MEDS: IBUPROFEN 800 MG TAB PO SCH (22:28)
[2020-10-29 02:00] VITALS: BP 142/77
[2020-10-29] MEDS: IBUPROFEN 800 MG TAB PO SCH ×2 (05:53→15:12)
[2020-10-29 06:00] VITALS: BP 136/83
--- NOTE | 2020-10-29 07:12 | OBDS ---
[facility] Obstetrical Discharge Sum. Obstetrical Discharge Summary Date: Oct 29, 2020 Labor SUBJECT: VAISHALI is a 20 YO POD2 S/P PLCD for arrest of dilation of male infant apgars 9/9 weight 3660g, 8lb1oz, uncomplicated procedure. She has been ambulating, voiding spontaneously without issue and tolerating regular diet. Breast feeding without issue. Reports lochia is like a normal period. Patient was diagnosed with GHTN on admission and her BP has remained in the mild range to normal range. had once severe range BP that did not persist. she denies any s/s of pre e OBJECTIVE: VITAL SIGNS: Within normal limits, afebrile. Vital Signs Date Time Temp Pulse Resp B/P (MAP) Pulse Ox O2 Delivery O2 Flow Rate FiO2 10/29/20 06:00 98.6 83 18 136/83 (100) 100 Room Air 10/29/20 02:00 98.7 77 16 142/77 (98) 100 Room Air 10/28/20 22:00 98.7 96 18 137/73 (94) 100 Room Air 10/28/20 18:00 99.4 98 18 115/79 (91) 100 Room Air 10/28/20 14:00 98.3 83 15 111/56 (74) 100 Room Air 10/28/20 10:00 98.4 103 16 145/71 (95) 99 Room Air 10/28/20 08:20 18 Current Medications Medications (Trade) Dose Ordered Sig/Santi Route PRN Reason Start Time Stop Time Status Last Admin Dose Admin Carboprost Tromethamine (Hemabate) 250 mcg Q15M PRN IM MOD/HEAVY LOCHIA 10/26/20 13:15 10/27/20 17:43 250 MCG Docusate Sodium (Colace) 100 mg BID PO 10/27/20 21:00 10/28/20 21:15 100 MG Ibuprofen (Advil) 800 mg Q8H PO 10/28/20 22:30 10/29/20 05:53 800 MG Oxytocin 30 units/ IV Miscellaneous Supplies 500 ml @ 0 mls/hr DRIP IV 10/26/20 13:15 10/26/20 15:04 2 MLS/HR Prenat Multivit/ Porcelain Finish Sprayer/Iron/Folic Ac ( Vitamins) 1 tab DAILY PO 10/28/20 09:00 10/28/20 08:59 1 TAB Alert and oriented times three. Breath sounds clear to auscultation. Heart rate: Regular rate and rhythm, no murmurs, rubs or gallops. Abdomen: Fundus firm at U-2. Soft, NTTP. incision dressing with moderate strikethrough on R side. ASSESSMENT: VAISHALI is a20 YO POD2 S/P PLCD for arrest of dilation of male apgars 9/9 weight 3660g, 8lb1oz, uncomplicated procedure. Vitals within normal limits, afebrile, hemodynamically stable with no evidence of infection. PLAN: 1. Discharge to home today 2. oxycodone, Tylenol and Motrin for pain. 3. Encourage breast feeding and ambulation. 4. minipill for contraception for now, 5. Routine PP visit in 2 and 6 weeks in clinic. 6. Discussed return precautions at length. A/P, Post Course List any complications Admission diagnosis: Induction of labor Discharge diagnosis: s/p delivery for arrest of descent Condition at Discharge: stable Discharge Instructions: home Activity: no heavy lifting and recommend strict pelvic rest x6 weeks. NO driving while on narcotic pain medication. Diet: regular Medications: tylenol, motrin and oxycodone prn pain Follow-up: call to schedule 2wk incision check and 6wk visit ENDY CROSS M.D. Oct 29, 2020 07:12
[2020-10-29] MEDS: PRENATAL VITAMINS CHEWABLE TABLET PO SCH (08:18)
[2020-10-29] MEDS: DOCUSATE SODIUM 100MG CAPSULE PO SCH (08:18)
== END 2020-10-29 17:30 | disposition home or self-care (01) | DRG 773 ==
LOC: M LDO 12:32 → M LDI 13:22 → M OBS 10-27 18:12
PROVIDERS: ADMIT Obstetrics & Gynecology; ATTEND Obstetrics & Gynecology
PROC: 10907ZC Drainage of Amniotic Fluid, Therapeutic from Products of Conception, Via Natural or Artificial Opening (ICD-10-PCS; 2020-10-27)
PROC: 10D00Z1 Extraction of Products of Conception, Low, Open Approach (ICD-10-PCS; principal; 2020-10-27 15:30)
DX: O13.4 Gestational [pregnancy-induced] hypertension without significant proteinuria, complicating childbirth (principal); Z3A.39 39 weeks gestation of pregnancy; Z37.0 Single live birth; O99.824 Streptococcus B carrier state complicating childbirth; O99.02 Anemia complicating childbirth; D64.9 Anemia, unspecified; O62.0 Primary inadequate contractions

== ENCOUNTER 2020-12-25 19:17 | Emergency (ER) | payer OTHER ==
[~2020-12-25] VITALS: Ht 160 cm; Wt 54.2 kg
--- OUTSIDE RECORDS SUMMARY | 2020-12-25 19:22 | CCD ---
Author Author [facility] Organization [facility] Address Unknown Phone Unavailable Care Team Providers Care Manager Clinical Informatics Name Role Phone GABO, F GEORGETTE DO Unavailable Unavailable GABO, F GEORGETTE DO Unavailable Unavailable GABO, F GEORGETTE DO Unavailable Unavailable GABO, F GEORGETTE DO Unavailable Unavailable GABO, F GEORGETTE DO Unavailable Unavailable GABO, F GEORGETTE DO Unavailable Unavailable GABO, F GEORGETTE DO Unavailable Unavailable GABO, F GEORGETTE DO Unavailable Unavailable GABO, F GEORGETTE DO Unavailable Unavailable GABO, F GEORGETTE DO Unavailable Unavailable GABO, F GEORGETTE DO Unavailable Unavailable GABO, F GEORGETTE DO Unavailable Unavailable GABO, F GEORGETTE DO Unavailable Unavailable GABO, F GEORGETTE DO Unavailable Unavailable GABO, F GEORGETTE DO Unavailable Unavailable GABO, F GEORGETTE DO Unavailable Unavailable GABO, F GEORGETTE DO Unavailable Unavailable GABO, F GEORGETTE DO Unavailable Unavailable GABO, F GEORGETTE DO Unavailable Unavailable GABO, F GEORGETTE DO Unavailable Unavailable GABO, F GEORGETTE DO Unavailable Unavailable GABO, F GEORGETTE DO Unavailable Unavailable GABO, F GEORGETTE DO Unavailable Unavailable GABO, F GEORGETTE DO Unavailable Unavailable GABO, F GEORGETTE DO Unavailable Unavailable GABO, F GEORGETTE DO Unavailable Unavailable GABO, F GEORGETTE DO Unavailable Unavailable GABO, F GEORGETTE DO Unavailable Unavailable GABO, F GEORGETTE DO Unavailable Unavailable GABO, F GEORGETTE DO Unavailable Unavailable GABO, F GEORGETTE DO Unavailable Unavailable GABO, F GEORGETTE DO Unavailable Unavailable GABO, F GEORGETTE DO Unavailable Unavailable GABO, F GEORGETTE DO Unavailable Unavailable Rosy FOSTER MD Unavailable Unavailable OBEN, T LAURA MD Unavailable Unavailable OBEN, T LAURA MD Unavailable Unavailable OBEN, T LAURA MD Unavailable Unavailable OBEN, T LAURA MD Unavailable Unavailable OBEN, T LAURA MD Unavailable Unavailable OBEN, T LAURA MD Unavailable Unavailable OBEN, T LAURA MD Unavailable Unavailable OBEN, T LAURA MD Unavailable Unavailable OBEN, T LAURA MD Unavailable Unavailable OBEN, T LAURA MD Unavailable Unavailable OBEN, T LAURA MD Unavailable Unavailable OBEN, T LAURA MD Unavailable Unavailable OBEN, T LAURA MD Unavailable Unavailable OBEN, T LAURA MD Unavailable Unavailable OBEN, T LAURA MD Unavailable Unavailable OBEN, T LAURA MD Unavailable Unavailable OBEN, T LAURA MD Unavailable Unavailable OBEN, T LAURA MD Unavailable Unavailable OBEN, T LAURA MD Unavailable Unavailable OBEN, T LAURA MD Unavailable Unavailable OBEN, T LAURA MD Unavailable Unavailable OBEN, T LAURA MD Unavailable Unavailable OBEN, T LAURA MD Unavailable Unavailable OBEN, T LAURA MD Unavailable Unavailable OBEN, T LAURA MD Unavailable Unavailable OBEN, T LAURA MD Unavailable Unavailable OBEN, T LAURA MD Unavailable Unavailable OBEN, T LAURA MD Unavailable Unavailable OBEN, T LAURA MD Unavailable Unavailable OBEN, T LAURA MD Unavailable Unavailable OBEN, T LAURA MD Unavailable Unavailable OBEN, T LAURA MD Unavailable Unavailable OBEN, T LAURA MD Unavailable Unavailable OBEN, T LAURA MD Unavailable Unavailable OBEN, T LAURA MD Unavailable Unavailable OBEN, T LAURA MD Unavailable Unavailable OBEN, T LAURA MD Unavailable Unavailable OBEN, T LAURA MD Unavailable Unavailable OBEN, T LAURA MD Unavailable Unavailable OBEN, T LAURA MD Unavailable Unavailable OBEN, T LAURA MD Unavailable Unavailable OBEN, T LAURA MD Unavailable Unavailable OBEN, T LAURA MD Unavailable Unavailable OBEN, T LAURA MD Unavailable Unavailable OBEN, T LAURA MD Unavailable Unavailable OBEN, T LAURA MD Unavailable Unavailable OBEN, T LAURA MD Unavailable Unavailable OBEN, T LAURA MD Unavailable Unavailable OBEN, T LAURA MD Unavailable Unavailable OBEN, T LAURA MD Unavailable Unavailable OBEN, T LAURA MD Unavailable Unavailable OBEN, T LAURA MD Unavailable Unavailable OBEN, T LAURA MD Unavailable Unavailable OBEN, T LAURA MD Unavailable Unavailable OBEN, T LAURA MD Unavailable Unavailable OBEN, T LAURA MD Unavailable Unavailable OBEN, T LAURA MD Unavailable Unavailable OBEN, T LAURA MD Unavailable Unavailable OBEN, T LAURA MD Unavailable Unavailable OBEN, T LAURA MD Unavailable Unavailable OBEN, T LAURA MD Unavailable Unavailable OBEN, T LAURA MD Unavailable Unavailable OBEN, T LAURA MD Unavailable Unavailable OBEN, T LAURA MD Unavailable Unavailable OBEN, T LAURA MD Unavailable Unavailable OBEN, T LAURA MD Unavailable Unavailable OBEN, T LAURA MD Unavailable Unavailable OBEN, T LAURA MD Unavailable Unavailable OBEN, T LAURA MD Unavailable Unavailable OBEN, T LAURA MD Unavailable Unavailable OBEN, T LAURA MD Unavailable Unavailable OBEN, T LAURA MD Unavailable Unavailable OBEN, T LAURA MD Unavailable Unavailable OBEN, T LAURA MD Unavailable Unavailable OBEN, T LAURA MD Unavailable Unavailable OBEN, T LAURA MD Unavailable Unavailable OBEN, T LAURA MD Unavailable Unavailable OBEN, T LAURA MD Unavailable Unavailable OBEN, T LAURA MD Unavailable Unavailable OBEN, T LAURA MD Unavailable Unavailable OBEN, T LAURA MD Unavailable Unavailable OBEN, T LAURA MD Unavailable Unavailable OBEN, T LAURA MD Unavailable Unavailable OBEN, T LAURA MD Unavailable Unavailable OBEN, T LAURA MD Unavailable Unavailable OBEN, T LAURA MD Unavailable Unavailable OBEN, T LAURA MD Unavailable Unavailable OBEN, T LAURA MD Unavailable Unavailable OBEN, T LAURA MD Unavailable Unavailable OBEN, T LAURA MD Unavailable Unavailable OBEN, T LAURA MD Unavailable Unavailable OBEN, T LAURA MD Unavailable Unavailable OBEN, T LAURA MD Unavailable Unavailable OBEN, T LAURA MD Unavailable Unavailable OBEN, T LAURA MD Unavailable Unavailable OBEN, T LAURA MD Unavailable Unavailable OBEN, T LAURA MD Unavailable Unavailable OBEN, T LAURA MD Unavailable Unavailable OBEN, T LAURA MD Unavailable Unavailable OBEN, T LAURA MD Unavailable Unavailable OBEN, T LAURA MD Unavailable Unavailable OBEN, T LAURA MD Unavailable Unavailable OBEN, T LAURA MD Unavailable Unavailable OBEN, T LAURA MD Unavailable Unavailable OBEN, T LAURA MD Unavailable Unavailable OBEN, T LAURA MD Unavailable Unavailable OBEN, T LAURA MD Unavailable Unavailable OBEN, T LAURA MD Unavailable Unavailable OBEN, T LAURA MD Unavailable Unavailable OBEN, T LAURA MD Unavailable Unavailable OBEN, T LAURA MD Unavailable Unavailable OBEN, T LAURA MD Unavailable Unavailable OBEN, T LAURA MD Unavailable Unavailable SAM, L NITHIN MD Unavailable Unavailable SAM, L NITHIN MD Unavailable Unavailable SAM, L NITHIN MD Unavailable Unavailable SAM, L NITHIN MD Unavailable Unavailable SAM, L NITHIN MD Unavailable Unavailable SAM, L NITHIN MD Unavailable Unavailable SAM, L NITHIN MD Unavailable Unavailable SAM, L NITHIN MD Unavailable Unavailable SAM, L NITHIN MD Unavailable Unavailable SAM, L NITHIN MD Unavailable Unavailable SAM, L NITHIN MD Unavailable Unavailable SAM, L NITHIN MD Unavailable Unavailable SAM, L NITHIN MD Unavailable Unavailable SAM, L NITHIN MD Unavailable Unavailable SAM, L NITHIN MD Unavailable Unavailable SAM, L NITHIN MD Unavailable Unavailable SAM, L NITHIN MD Unavailable Unavailable SAM, L NITHIN MD Unavailable Unavailable SAM, L NITHIN MD Unavailable Unavailable SAM, L NITHIN MD Unavailable Unavailable Re-disclosure Warning The records that you are about to access may contain information from federally-assisted alcohol or drug abuse programs. If such information is present, then the following federally mandated warning applies: This information has been disclosed to you from records protected by federal confidentiality rules (42 CFR part 2). The federal rules prohibit you from making any further disclosure of this information unless further disclosure is expressly permitted by the written consent of the person to whom it pertains or as otherwise permitted by 42 CFR part 2. A general authorization for the release of medical or other information is NOT sufficient for this purpose. The Federal rules restrict any use of the information to criminally investigate or prosecute any alcohol or drug abuse patient.The records that you are about to access may contain highly sensitive health information, the redisclosure of which is protected by Article 27-F of the [facility] Public Health law. If you continue you may have access to information: Regarding HIV / AIDS; Provided by facilities licensed or operated by the [facility] Office of Mental Health; or Provided by the [facility] Office for People With Developmental Disabilities. If such information is present, then the following [facility] mandated warning applies: This information has been disclosed to you from confidential records which are protected by state law. State law prohibits you from making any further disclosure of this information without the specific written consent of the person to whom it pertains, or as otherwise permitted by law. Any unauthorized further disclosure in violation of state law may result in a fine or care home sentence or both. A general authorization for the release of medical or other information is NOT sufficient authorization for further disc losure. Encounters Encounter Providers Location Date Indications Data Source(s ) Outpatient Attender: LAURA FOSTER MD 03/20/19 08:43:00 AM EST - 03/20/2020 08:43:00 AM [facility] Outpatient Attender: LAURA FOSTER MD Family Practice 03/20/2020 08:00:0 0 AM EST [facility] ([facility]) Emergency Attender: GEORGETTE AYON DO 2019 07:45:00 PM EST - 02/24/2020 10:18:00 PM [facility] Patient discharged. Emergency Attender: NITHIN VARGAS MD 2019 09:07:00 PM EDT - 11/02/2019 11:40:00 PM EDT [facility] Patient discharged. Medications No Information Insurance Providers Payer name Policy type / Coverage type Policy ID Covered green party ID Covered green party's relationship to dixon Policy Dixon Plan Information [facility] ACTIVE DUTY [id number] SP [id number] [facility] ACTIVE DUTY [id number] SP [id number] [facility] [place] [id number] 18 [id number] [facility] [id number] 18 [id number] [facility] - O/P [id number] Problems, Conditions, and Diagnoses Code Display Name Description Problem Type Effective Dates Data Source(s) Z3A01 Less than 8 weeks gestation of Less than 8 weeks gestation of Diagnosis 02/24/2020 07:45:00 PM [facility] R102 Pelvic and perineal pain Pelvic and perineal pain Diag nosis 02/24/2020 07:45:00 PM [facility] [id number] Other specified related condit ions, first trimester Other specified related conditions, first trimester Diagnosis 02/24/2020 07:45:00 PM [facility] E860 Dehydration Dehydration Diagnosis 11/02/2019 09:07:00 PM EDT [facility] R112 Nausea with vomiting, unspecified Nausea with vo miting, unspecified Diagnosis 11/02/2019 09:07:00 PM EDT [facility] N3000 Acute cystitis without hematuria Acute cystitis without hematuria Diagnosis 11/02/2019 09:07:00 PM EDT [facility] R1013 Epigastric pain Epigastric pain Diagnosis 11/02/2019 09:0 7:00 PM EDT [facility] Surgeries/Procedures No Information Results ID Date Data Source [id number] 08/30/2020 01:08:00 AM EDT [facility] Name Value Range Interpretation Code Description Data Maria Guadalupe rce(s) Supporting Document(s) SARS coronavirus 2 RNA [Presence] in Res piratory specimen by EMMIE with probe detection NEGATIVE [facility] This lab was ordered by [facility] a nd reported by [facility]. ID Date Data Source [id number] 03/20/2020 08:00:00 AM EST [facility] ([facility]) Name Value Range Interpretation Code Description Data Maria Guadalupe rce(s) Supporting Document(s) Color of Urine Laboratory test result [facility] ([facility]) Spec [place] 1.020 [facility] ([facility]) Appearance of Urine Laboratory test result [facility] ([facility]) pH of Urine by Test strip 5 [facility] NT ([facility]) Leukocytes Laboratory test result [facility] ([facility]) Nitrate [Presence] in Urine Laboratory test result [facility] ([facility]) Protein [Presence] in Urine by Test strip Laboratory test result [facility] ([facility]) Ketones [Presence] in Urine by Test strip Laboratory test result [facility] ([facility]) Inhouse Glucose Laboratory test result [facility] ([facility]) Urobilinogen Laboratory test result [facility] ([facility]) Bilirubin.total [Presence] in Urine by Test strip Laboratory test res ult [facility] ([facility]) Blood type and Indirect antibody screen panel - Blood Laboratory test result [facility] ([facility]) ID Date Data Source [id number] 02/24/2020 07:45:00 PM EST [facility] 1 OrderSheet [facility] Emergency Department [address] [place] [address] Phone #: idp- [phone] 02/24/2020 19:40 [id number] Sex: F : 2000 Age: 19yWEIGHT:50.3 kg (S) HEIGHT:63 inches (S) BMI:19.6ALLERGIES: NoneCHIEF COMPLAINT: abdominal painDIAGNOSIS: Patient currently LAB ORDERSOrder Description Priority Entered Acknowledged InitialedUrinalysis (Clean STAT 19:49 02/2020 19:53 Mark Orozco) Clark Beltrán ; R.N.HCG Urine Qual STAT 19:49 02/24/2020 19:53 Chanda Orozco Howard ; R.N.HCG Serum Quant STAT 20:48 02/24/2020 21:00 Chanda Orozco Howard ; R.N.Type Rh STAT 20:48 02/24/2020 21:00 Chanda Orozco Howard ; R.N.DIAGNOSTIC STUDY ORDERSOrder Description Priority Entered Acknowledged InitialedUS Pelvis STAT 20:02 02/24/2020 Cancelled: Other 20:08 Clark Beltrán(Oxygen?(No)) Clark Beltrán ; Reason for Study: PainUS STAT 20:09 02/24/2020 20:17 Dylon OrozcoRANSVAGINAL Clark Beltrán ; R.NRachel(NON OB)(Oxygen?(No)) Reason for Study: PainMEDICATION/IV/DRIP/FLUID ORDERSOrder Description Priority Entered Acknowledged InitialedGENERAL ORDERSOrder Description Priority Entered Acknowledged Initialed[Electronically signed by Clark Beltrán (22:03 02/24/2020)][Electronically signed by Chanda Orozco R.N. (22:18 02/24/2020)][Electronically locked by Chanda Orozco R.N. (22:18 02/24/2020)] Name Value Range Interpretation Code Description Data Maria Guadalupe rce(s) Supporting Document(s) ID Date Data Source [id number] 02/24/2020 07:45:00 PM EST [facility] 1 Medication Reconciliation Report [facility] Emergency Department [address] [place] [address] Phone #: ext- [phone] 02/24/2020 19:40 Patient: VAISHALI CHAVEZ Sex: F : 2000 Age: 19yWeight: 50.3 kgHeight/Length: 63 in.BMI: 19.6ALLERGIES: NoneThe patient's Home Medications are listed below:NONE.The source(s) of the original Home Medication information:Not obtained.The following Medications were given to the patient in the Emergency Department:None.The following Medications were prescribed to the patient:None. Name Value Range Interpretation Code Description Data [facility](s) Supporting Document(s) ID Date Data Source [id number] 02/24/2020 07:45:00 PM [place] [address] Medication Administration Record [facility] [address] [place] [address] Phone #: ext- [phone] 02/24/2020 19:40 Patient: VAISHALI CHAVEZ Sex: F : 2000 Age: 19yWeight: 50.3 kgHeight/Length: 63 inBMI: 19.6ALLERGIES: NoneDate/Time Medication Administered Medication Ordered Name Value Range Interpretation Code Description Data [facility](s) Supporting Document(s) ID Date Data Source [id number] 02/24/2020 07:45:00 PM [facility] 1 General Instructions [facility] [address] [place] [address] Phone #: ext- [phone] 02/24/2020 19:40 Patient: VAISHALI CHAVEZ Sex: F : 2000 Age: 19yFirst trimester . ADDITIONAL INFORMATIONPregnancyYour exam today shows that you are . symptomsDuring your body's hormones change. This causes physical and emotional changes. Thisis normal. Knowing what to expect is important for your piece of mind and so you know when to seekhelp for a problem. Here are some of the most common symptoms: Morning sickness or nausea. This can happen any time of the day or night. Tender, swollen breasts Need to urinate frequently Tiredness or fatigue 2 Ge neral Instructions [facility] [address] [place] [address] Phone #: ext- [phone] 02/24/2020 19:40 Patient: VAISHALI CHAVEZ Sex: F : 2000 Age: 19y Dizziness Indigestion or heartburn Food cravings or turn-offs Constipation Emotional changes. This can range from anxiety to excitement to depression.General care for a healthy pregnancyHere are things you can do to help make sure your baby is born healthy: Rest when you feel tired. This is especially true in the later months of . Drink more fluids. Your body needs more fluids than you may be used to. Drink 8 to10 glasses of juice, milk, or water every day. Eat well-balanced meals. Eat at regular times to give your body enough protein. You can expect to gain about 30 pounds during the . Don't try to diet or lose weight while you are . Take a vitamin every day. This helps you meet the extra nutritional needs of . Don't take any other medicine during your unless your healthcare provider tells you to. This includes prescription medicines and those you buy over the counter. Many medicines can harm the growing baby. If you have nausea or vomiting, don't eat greasy or fried foods. Eat several smaller meals throughout the day rather than 3 large meals. If you smoke, you must stop. The nicotine you breathe in goes right to the baby. Stay away from alcohol, even in moderate amounts. Daily drinking will harm your baby and can cause permanent brain damage. Don't use recreational drugs, especially cocaine, crack, and heroin. These will harm your baby. Also avoid marijuana. If you were using recreational drugs or prescribed medicine when you found out that you were , talk with your healthcare provider about possible effects on your growing baby. If you have medical problems that you need to take medicine for, talk with your healthcare provider.Follow-up care 3 General Instructions [facility] [address] [place] [address] Phone #: ext- [phone] 02/24/2020 19:40 Patient: VAISHALI CHAVEZ Sex: F : 2000 Age: 19yCall your healthcare provider to arrange for care. care is important. You can seeyour family provider, a specialist (tea plantation worker), a firmware engineer, or a primary care clinic.When to seek medical adviceCall your healthcare provider right away if any of these occur: Vaginal bleeding Pain in your belly (abdomen) or back that is moderate or severe Lots of vomiting, or you can't keep any fluids down for 6 hours Burning feeling when you urinate Headache, dizziness, or rapid weight gain Fever Vision changes or blurred vision [employer]. [address] [place] [address], [place] [address]. All rights reserved. This information is not intended as asubstitute for professional medical care. Always follow your healthcare professional's instructions. You have been given the following additional information: , New Dx(Electronically signed by Clark Beltrán 02/24/2020 22:03) Name Value Range Interpretation Code Description Data Maria Guadalupe rce(s) Supporting Document(s) ID Date Data Source [id number] 02/24/2020 07:45:00 PM EST [facility] 1 Clinical Report - Nurses [facility] Department [address] [place] [address] Phone #: ext- [phone] 02/24/2020 19:40 Patient: VAISHALI CHAVEZ Sex: F : 2000 Age: 19yTRIAGEArrived by private vehicle. Historian: patient. Accompanied by friend. ( started wednesday with lowerback pain and pelvic pain, pain feels different than menstrual cramps, breast sore and menstrual periodlate, could be ).Acuity: LEVEL 4.Chief Complaint: PELVIC PAIN, FREQUENCY and (back pain).Alert. No acute distress.Onset. (wednesday). She has had abdominal pain.Treatment DROP HAMMER SETTER UP:None.SEPSIS SCREEN: SIRS SCREEN NEGATIVE. SEPSIS SCREEN NEGATIVE. No suspected or confirmedsigns of infection present. --19:45 02/24/20 Chanda Orozco R.N.19:41 02/24/20. BP: 124/83. MAP: 96. HR: 85. RR: 16. O2 saturation: 100%. Temp: 97.9 F. Pain levelnow: 6/10. --19:45 02/24/20 Chanda Orozco R.N.Weight: 50.3 kg stated. Height/Length: 63 inches Per Patient. BMI: 19.6. --19:41 02/24/20 Chanda Orozco R.N.MedicationsNone. --19:43 02/24/20 Chanda Orozco R.N.AllergiesNone. --19:43 02/24/20 Chanda Orozco R.N.PROBLEMS:no known problems.ADDITIONAL SURGERIES:no known surgeries.HistoryPAST MEDICAL HX: Immunizations: up-to-date. Last normal menstrual period- Jan 24. Currently. G 0. P 0. Ab 0.SOCIAL HX: Never smoker. No alcohol use or drug use. She was offered HIV testing but declined andhepatitis C testing but declined. She has not traveled outside the [place]Infectious disease exposure: No infectious disease exposure. Patient is not a known carrier of tuberculosis, 2 Clinical Report - Nurses [facility] [address] [place] [address] Phone #: ext- [phone] 02/24/2020 19:40 Patient: VAISHALI CHAVEZ Sex: F : 2000 Age: 19y hepatitis, HIV, MRSA or VRE. Patient is not a known carrier of CRE. SELF HARM ASSESSMENT: Self harm assessment was performed. The patient answered "no" to the question(s) "Have you recently felt down, depressed, or hopeless?", "Do you have thoughts of harming or killing yourself?", "Do you have a plan for harming or killing yourself?", "Have you recently had thoughts about harming or killing others?", "Do you have any dangerous items in your possession?", "Have you noticed less interest or pleasure in doing things?", "Are you here because you tried to hurt yourself?" and "Have you ever tried to hurt yourself before today?". ABUSE ASSESSMENT: Abuse assessment. Abuse denied. No suspicion of abuse. No report of abuse. NUTRITIONAL RISK ASSESSMENT: The nutritional risk assessment revealed no deficiencies. FUNCTIONAL ASSESSMENT: Functional assessment: no impairments noted. LEARNING NEEDS ASSESSMENT: The learning needs assessment revealed no barriers. FALL RISK ASSESSMENT: Fall risk assessment completed. No risk factors identified. SKIN INTEGRITY ASSESSMENT: Skin integrity risk assessment completed. No skin integrity risk identified. --19:45 02/24/20 Chanda Orozco R.N. FAMILY HX: Negative. --20:04 02/24/20 Clark Beltrán.PHYSICAL ASSESSMENTAmbulatory to room.GENERAL / NEURO / PSYCH: Alert. Oriented X 4. Appears in no acute distress.HEENT: Mucous membranes are pink.RESPIRATORY: Respirations not labored. Breath sounds within normal limits.CVS: Normal heart rate and rhythm. Capillary refill less than 2 seconds.GI / : Abdomen soft. Abdominal tenderness in the lower abdomen. Bowel sounds within normallimits. Urgency of urination. ( lower back pain).SKIN: Skin is warm and dry. --19:46 02/24/20 Chanda Orozco R.N.NURSING PROGRESS NOTESPatient gowned. Reassurance given. Two patient identifiers checked. Call light placed in reach. Siderails up x 2. Bed placed in lowest position. Brakes of bed on. Patient ready for evaluation- PA notified.--19:46 02/24/20 Chanda Orozco R.N. Patient ID band checked for patient name and birthdate: patient confirmed. Instructions provided to collect clean catch urine and patient verbalized understanding. Clean catch urine collected; sample sent to lab for urinalysis and HCG. Specimen labeled in the presence of the patient. --19:54 02/24/20 Chanda Orozco R.N. [facility] --20:17 02/24/20 Chanda Orozco R.N. 3 Clinical Report - Nurses [facility] [address] [place] [address] Phone #: ext- [phone] 02/24/2020 19:40 Patient: VAISHALI CHAVEZ Sex: F : 2000 Age: 19y Patient walked back from sonogram with tech. --20:39 02/24/20 Chanda Orozco R.N. 20:41 02/24/20. BP: 137/79. MAP: 98. HR: 81. RR: 16. O2 saturation: 100%. --20:41 02/24/20 [place] revenue integrity analyst, NIMO Cohn Tech1 ( awaiting results of ultrasound resting comfortable). --20:46 02/24/20 Chanda Orozco R.N. ( waiting on test results). --21:56 02/24/20 Chanda Orozco R.N. 21:55 02/24/20. BP: 136/74. MAP: 94. HR: 85. RR: 18. O2 saturation: 99%. --21:56 02/24/20 Chanda Orozco R.N.DISPOSITION / DISCHARGE Condition at departure: improved. No learning barriers present. Discharge instructions provided and reviewed with the patient. Reviewed fever care instructions. Patient verbalized understanding. Written instructions provided in [place]. The patient was discharged home and accompanied by driver recruiter. She left ambulatory and via private vehicle. Rn Triage driving. --22:18 02/24/20 Chanda Orozco R.N. 22:17 02/24/20. BP: 135/78. MAP: 97. HR: 74. RR: 18. O2 saturation: 99%. Temp: 98.1 F. Pain level now: 03/24. --22:18 02/24/20 Chanda Orozco R.N. Departure time: 22:18 02/24/2020. --22:18 02/24/20 Chanda Orozco R.N.Locked/Released at 02/24/2020 22:18 by Chanda Orozco R.N. Name Value Range Interpretation Code Description Data Maria Guadalupe rce(s) Supporting Document(s) ID Date Data Source [id number] 02/24/2020 07:45:00 PM [facility] 1 Clinical Report - Physicians/Mid Levels [facility] Emergency Department [address] [place] [address] Phone #: ext- [phone] 02/24/2020 19:40 Patient: VAISHALI CHAVEZ Sex: F : 2000 Age: 19y Arrived- By private vehicle. Historian- patient.HISTORY OF PRESENT ILLNESS Chief Complaint: ABDOMINAL PAIN. This started since wednesday. It is described as "pain" and cramping and it is described as located in the right pelvis and left pelvis, in the pelvic area and in the suprapubic area. At its maximum, severity described as 6 / 10. When seen in the E.D., severity described as 6 / 10. No nausea, loss of appetite, vomiting or diarrhea. Similar symptoms previously. None. Recent medical care: Not recently seen/assessed.REVIEW OF SYSTEMSNo constipation, black stools, hematemesis, difficulty with urination or pain with urination. No urinaryfrequency, fever or chills. All other systems reviewed and are negative.PAST HISTORYSee nurses notes.SOCIAL HISTORYNever smoker. No recent travel. She lives with a family member.FAMILY HISTORYNegative.ADDITIONAL NOTESThe nursing notes have been reviewed.PHYSICAL EXAMAppearance: Alert. Oriented X3. No acute distress.Eyes: Pupils equal, round and reactive to light. Eyes normal inspection.ENT: Ears normal. Nose normal. Pharynx normal.Neck: Normal inspection. Neck supple.CVS: Normal heart rate and rhythm. Heart sounds normal.Respiratory: No respiratory distress. Breath sounds normal. Chest nontender.Abdomen: Soft. Moderate tenderness in the suprapubic area and lower abdomen. No guarding, reboundtenderness or Solo's, obturator or psoas sign present. No rebound tenderness.Back: Normal inspection.Skin: Skin warm. Normal skin color.Extremities: Extremities exhibit normal ROM. No lower extremity edema. 2 Clinical Report - Physicians/Mid Levels [facility] Emergency Department [address] [place] [address] Phone #: ext- [phone] 02/24/2020 19:40 Patient: VAISHALI CHAVEZ Sex: F : 2000 Age: 19yNeuro: Oriented X 3. No motor deficit. No sensory deficit.LABS, X-RAYS, AND EKGLaboratory Tests:Beta-HCG, Quant Serum: (CORINNE: 02/24/2020 21:08) ( [facility] [place] 21:50[place] Final results Test Result Flag Units (Reference) HCG QUANT 569.7 mIU/mL Interpretation: Less than 5 mU/mL: Negative6-10 mU/mL: Borderline (suggest repeat in 48 hours) >10: PositiveApprox HCG range (mU/mL) Weeks post LMP 5.4-708 mU/mL 3-4 Smwwx483-61075 mU/mL 5-6 Weeks 4059-193888 mU/mL 7-8 Vusro86116-187279 mU/mL 9-10 Weeks 54382-31187 mU/mL 12-14 Weovo92097-25349 mU/mL 15-16 Weeks 8240-29497 mU/mL 17-18 WeeksType Rh: (CORINNE: 02/24/2020 21:08) ( [facility] [place]24[place] 22:00) Final results Test Result Flag Units (Reference) ABO GROUP O RH TYPE POSITIVE { ABO/RH REENTER O POSITIVEUS TRANSVAGINAL (NON OB): (CORINNE: 02/24/2020 20:09) ( [facility] 02/24/2020 21:21) Final results Exam US TRANSVAGINAL(NON OB) [facility] [address] [place] [address] ---------NAME--------- NUMBER SEX AGE ADMIT DISC. XRAY# F/C TYPE KATHY Beyer [id number] F 19 02/24/20 [id number] SB4 E/R DATE OF : 2000 M/R# [id number] #: [id number] TR-04 LOCATION: EMERGENCY DEPT TRANSCRIBED: 02/24/20 21:19 IF US TRANSVAGINAL(NON OB) 33377 COMPLETED:02/24/20 20:40 MCM 90 Reason(s): Pain PHYSICIAN: GABO KEARNEY R A D I O L O G Y R E P O R T ===== PATIENT HISTORY: Pelvic Pain x few days LMP 01/25/20 US Pelvis History: Pelvic Pain x few days LMP 01/25/20 (Hx) Technique: US TRANSVAGINAL(NON OB) Comparison: No comparison study available. Findings: Normal appearing 6.8 x 3.6 x 4.5 cm uterus. Empty endometrial cavity is noted. 3 Clinical Report - Physicians/[facility] Emergency Department [address] [place] [address] Phone #: ext- [phone] 02/24/2020 19:40 Patient: VAISHALI CHAVEZ Sex: F : 2000 Age: 19y Endometrial thickness measures 12.8 mm. 2.3 x 1.4 x 2.7 cm right ovary is noted. Right ovary had hypoechoic heterogeneous region 1.3 x 0.7 x 1.7 cm in size. Normal appearing 2.5 x 3 x 1.2 cm left ovary is noted. Arterial flow seen in the right ovary. Arterial flow seen in the left ovary. Follicles noted in both ovaries. No pelvic free fluid is noted. IMPRESSIONS: No definitive ovarian torsion is visualized bilaterally. Prominent endometrium, please correlate with secretory phase of cycle. Right ovarian findings likely due to an involuting cyst right ovary. Electronically Signed By: Eagle Macias M.D. , Radiologist Date/Time: 02/24/20 21:.2120.MCM.to EMERGENCY via modemUS Pelvis: (CORINNE: 02/24/2020 20:02) ( [facility] 02/24/2020 20:08) CanceledReason(s): PainReason(s): PainTRANSPORTATION: WC IV? O2? Oxygen?(No) Room: EDUrinalysis: (CORINNE: 02/24/2020 19:48) ( [facility] 02/24/2020 20:12) Final results Test Result Flag Units (Reference) URINALYSIS URINALYSIS SOURCE R COLOR yellow (NORMAL: Yello CLARITY clear (NORMAL: Clear SPEC GRAVITY 1.010 (1.001 - 1.030 pH 6.5 (5 - 9) GLUCOSE NORM (NORMAL: Negat BILIRUBIN NEG (NORMAL: Negat KETONE NEG (NORMAL: Negat PROTEIN NEG (NORMAL: Negat NITRITE NEG (NORMAL: Negat BLOOD 10 A (NORMAL: Negat LEUK EST NEG (NORMAL: Negat UROBILINOGEN NOR (less than 1.0 MICROSCOPIC See Below WBC None Seen (NORMAL: NONE RBC 0 - 1 (NORMAL: NONE EPITHELIAL FEW (NORMAL: NONE BACTERIA None Seen (NORMAL: NONEBeta-HCG, Qual Urine: (CORINNE: 02/24/2020 19:48) ( [facility] [place] 02/24/2020 20:10) Final results Test Result Flag Units (Reference) HCG URINE QUAL POSITIVE (NORMAL: NEGAT HCG URINE QL REENTER POSITIVE (NORMAL: NEGAT { KIT LOT # [id number] ){ KIT EXP [id number] ){ PROCEDURAL CONTROL VALID) 4 Clinical Report - Physicians/Mid Levels [facility] Emergency Department [address] [place] [address] Phone #: ext- [phone] 02/24/2020 19:40 -- Patient: VAISHALI CHAVEZ Sex: F : 2000 Age: 19y.PROGRESS AND PROCEDURESCourse of Care: ED care transferred. Brief hx: abdominal cramping without bleeding. Expecteddisposition: discharge from ED.CLINICAL IMPRESSION First trimester .(Electronically signed by Clark Beltrán 02/24/2020 22:03) Name Value Range Interpretation Code Description Data Maria Guadalupe rce(s) Supporting Document(s) ID Date Data Source [id number] 02/24/2020 09:19:00 PM [facility] [address] [place] [address] ---------NAME--------- NUMBER SEX AGE ADMIT DISC. XRAY# F/C TYPE KATHY Beyer [id number] F 19 02/24/20 [id number] SB4 E/R DATE OF : 2000 M/R# [id number] #: [id number] TR-04 LOCATION: E MERGENCY DEPT TRANSCRIBED: 02/24/20 21:19 IF US TRANSVAGINAL(NON OB) 02939 COMPLETED:02/24/20 20:40 MCM 90 Reason(s): Pain PHYSICIAN: GABO KEARNEY R A D I O L O G Y R E P O R T PATIENT HISTORY:Pelvic Pain x few daysLMP 01/25/20US PelvisHistory:Pelvic Pain x few days LMP 01/25/20 (Hx)Technique:US TRANSVAGINAL(NON OB)Comparison:No comparison study available.Findings:Normal appearing 6.8 x 3.6 x 4.5 cm uterus.Empty endometrial cavity is noted.Endometrial thickness measures 12.8 mm.2.3 x 1.4 x 2.7 cm right ovary is noted.Right ovary had hypoechoic heterogeneous region 1.3 x 0.7 x 1.7 cm in size.Normal appearing 2.5 x 3 x 1.2 cm left ovary is noted.Arterial flow seen in the right ovary.Arterial flow seen in the left ovary.Follicles noted in both ovaries.No pelvic free fluid is noted.IMPRESSIONS:No definitive ovarian torsion is visualized bilaterally.Prominent endometrium, please correlate with secretory phase of cycle.Right ovarian findings likely due to an involuting cyst right ovary.Electronically Signed By:Eagle Macias M.D. , RadiologistDate/Time: 02/24/20 21:19 02/24/20.2121.MCM.to EMERGENCY via modem Name Value Range Interpretation Code Description Data Maria Guadalupe rce(s) Supporting Document(s) ID Date Data Source [id number] 02/24/2020 10:00:00 PM [facility] Name Value Range Interpretation Code Description Data Maria Guadalupe rce(s) Supporting Document(s) ABO group [Type] in Blood O [facility] Rh [Type] in Blood POSITIVE [facility] { ABO/RH REENTER O POSITIVE ID Date Data Source [id number] 02/24/2020 09:50:00 PM [facility] Name Value Range Interpretation Code Description Data Maria Guadalupe rce(s) Supporting Document(s) Choriogonadotropin.intact [Units/volume] in Serum or Plasma 569.7 mIU /mL [facility] Interpr etation: Less than 5 mU/mL: Negative 6-10 mU/mL: Borderline (suggest repeat in 48 hours) >10: Positive Approx HCG range (mU/mL) Weeks post LMP 5.4-708 mU/mL 3-4 Weeks 217-28998 mU/mL 5-6 Weeks 4059-204893 mU/mL 7-8 Weeks 64595-455406 mU/mL 9-10 Weeks 44494-40800 mU/mL 12-14 Weeks 74572-56526 mU/mL 15-16 Weeks 6440- 51066 mU/mL 17-18 Weeks ID Date Data Source [id number] 02/24/2020 08:12:00 PM EST [facility] Name Value Range Interpretation Code Description Data Maria Guadalupe rce(s) Supporting Document(s) [facility] S[facility] R [facility] al COLOR yellow NORMAL: Yellow [facility] CLARITY clear NORMAL: Clear [facility] Specific gravity of Urine by Test strip 1.010 1.001 - 1.030 [facility] pH 6.5 5 - 9 [facility] al Glucose [Mass/volume] in Urine by Test strip NORM NORMAL: Negat [facility] Bilirubin.total [Presence] in Urine by Test strip NEG NORMAL: Negative [facility] Ketones [Presence] in Urine by Test strip NEG NORMAL: Negative [facility] Protein [Mass/volume] in Urine by Test strip NEG NORMAL: Negat [facility] Nitrite [Presence] in Urine by Test strip NEG NORMAL: Negative [facility] BLOOD 10 NORMAL: Negative [facility] Leukocyte esterase [Presence] in Urine by Test strip NEG NITHIN L: Negative [facility] Urobilinogen [Mass/volume] in Urine by Test strip NOR less vu n 1.0 mg/dL [facility] MICROSCOPIC See Below [facility] ital WBC None Seen NORMAL: NONE SEEN [facility] Erythrocytes [#/volume] in Urine by Test strip 0 - 1 NORMAL: NON E SEEN [facility] EPITHELIAL FEW NORMAL: NONE SEEN [facility] Bacteria [Presence] in Urine sediment by Light microscopy No ne Seen NORMAL: NONE SEEN [facility] ID Date Data Source [id number] 02/24/2020 08:10:00 PM EST [facility] Name Value Range Interpretation Code Description Data Maria Guadalupe rce(s) Supporting Document(s) HCG URINE QUAL POSITIVE NORMAL: NEGATIVE [facility] HCG URINE QL REENTER POSITIVE NORMAL: NEGATIVE [facility] { KIT LOT # [id number] ){ KIT EXP DATE 12-18-20 ){ PROCEDURAL CONTROL VALID ) ID Date Data Source [id number] 11/03/2019 11:32:00 AM EDT [facility] [address] [place] [address] PHONE: [phone] FAX: [phone] Name .................. : KATHY Beyer Acct Number.................. : [id number] ROOM. ................. : [place] MR Number ................... : [id number] Stay type ............. : E/R Discharge Date......... ... : Admit Date ......... : 11/02/19 Admit Phys .................... : COONEYNORM Date of ....... : 2000 Family Phys ................... : UNKNOWN Phone .................. : [phone] Age ................................ : 19 Film# .................. .:[id number] Sex ................................. : F Unsigned transcriptions are preliminary reports and do not represent a medical or legal document CT ABD & PELVIS W/ IV ONLY [id number] COMPLETE:11/02/19 22:45 KJE [id number] Reason(s): Abdominal Pain CT OF THE ABDOMEN AND PELVIS WITH IV CONTRAST: INDICATION: Abdominal pain. FINDINGS: The chest space is clear. There is normal contrast-enhanced CT appearance of the liver, spleen, pancreas, adrenal glands and kidneys. No gallbladder wall thickening or biliary duct dilatation. The visualized bowel is normal in caliber. The appendix is normal. No bowel wall thickening. The bladder and pelvic organs appear normal. No acute osseous abnormality. No lymphadenopathy. IMPRESSION: No acute intra-abdominal process. While performing the above CT examination, radiation dose reduction was accomplished utilizing automated exposure control, adjusting of the mA and kV based on the patient's body size and/or the use of imperative reconstructive techniques. CT dose: 686.4 mGycm Contrast agent in mL: 75 Isovue 370 Page 1 of 2 [facility] [address] [place] [address] PHONE: FAX: [phone] Name .................. : KATHY VAISHALI Kayleen Acct Number.................. : [id number] ROOM. ................. : [place]-02 MR Number ................... : [id number] Stay type ............. : E/R Discharge Date......... ... : Admit Date ......... : 11/02/19 Admit Phys .................... : [facility] Date of ....... : 2000 Family Phys ................... : UNKNOWN Phone .................. : [phone] Age ................................ : 19 Film# .................. .:[id number] Sex ................................. : F Unsigned transcriptions are preliminary reports and do not represent a medical or legal document CT ABD & PELVIS W/ IV ONLY [id number] COMPLETE:11/02/19 22:45 [id number] [id number] Reason(s): Abdominal Pain Method of administration: Intravenous Electronically Reviewed and Signed By Tan Torres M.D. , 11/03/19 11:32, SHAHRIAR Transcribe Initials: KEITH , Transcribe Date: 11/02/19 23:22, Dictation Date: Copy for: EMERGENCY DEPT via modem Copy for: 710 MED REC DISCHARGED Page 2 of 2 Name Value Range Interpretation Code Description Data Maria Guadalupe rce(s) Supporting Document(s) ID Date Data Source [id number] 11/02/2019 09:07:00 PM EDT [facility] 1 OrderSheet [facility] Emergency Department [address] [place] [address] Phone #: ext- [phone] 11/02/2019 20:57 Patient: VAISHALI CHAVEZ Sex: F : 2000 Age: 19yWEIGHT:50.3 kg (S) HEIGHT:63 inches (S) BMI:19.6ALLERGIES: No Known Drug AllergyCHIEF COMPLAINT: abdominal painDIAGNOSIS: Vomiting, O/E - dehydrated, Urinary tract infectious disease, Abdominal painLAB ORDERSOrder Description Priority Entered Acknowledged InitialedC w Diff STAT :11/02/2019 21:20 Sam Rodriguez Norma MD; Eliza GonsalesCMP STAT :11/02/2019 21:20 Sam Rodriguez Norma MD; Eliza GonsalesLactic Acid STAT :11/02/2019 21:20 Sam Rodriguez Norma MD; Eliza GonsalesLipase STAT 21:18 11/02/2019 21:20 Sam Rodriguez Norma MD; Eliza GonsalesUric Acid STAT 21:11/02/2019 Ack'd: 21:20 21:23 Sam Rodriguez Norma MD; Eliza Rodriguez R.N. R.NRachelHCG Serum Quant STAT 21:18 11/02/2019 21:20 Sam Rodriguez Norma MD; Eliza GonsalesUrinalysis (Clean STAT 21:11/02/2019 Ack'd: 21:20 21:23 Jennifer,Catch) Eliza Rodriguez Jennifer Jennifer R.N. R.NRachel; Verbal order R.N. per; Nithin Vargas MDDIAGNOSTIC STUDY ORDERSOrder Description Priority Entered Acknowledged InitialedCT Abd PEL W/ IV STAT 22:13 11/02/2019 22:21 Jennifer,Contrast Only Nithin Vargas MD; Eliza Gonsales(Oxygen?(No))(IV?(Yes)) Reason for Study: Abdominal PainMEDICATION/IV/DRIP/FLUID ORDERSOrder Description Priority Entered Acknowledged InitialedIV NS 1000 mL 22:03 11/02/2019 22:37 Jennifer, 2 OrderSheet [facility] Emergency Department [address] [place] [address] Phone #: ext- [phone] 11/02/2019 20:57 Patient: VAISHALI CHAVEZ Sex: F : 2000 Age: 19yBolus : Bolus 1000 Nithin Vargas MD; Eliza GonsalesmL (X1)Rocephin 22:03 11/02/2019 22:37 Jennifer,(1gm/50mL) IVPB Nithin Vargas MD; Eliza Gonsales1000 mg withDextrose 50 mlspike bag (D5W)Toradol IVP 30 mg 22:13 11/02/2019 Ack'd: 22:37 22:40 Jennifer,(NOW x1) Nithin Vargas MD; Eliza Rodriguez R.N. R.N.GI Cocktail PO 50 23:29 11/02/2019 23:34 Jennifer,mL with Lidocaine Eliza Rodriguez R.N.Viscous R.N.; Verbal orderMouth/Throat 10 per; Zee Vargas, Maalox Oral 30 MDmL, Oral10 mLGENERAL ORDERSOrder Description Priority Entered Acknowledged Initialed[Electronically signed by Eliza Rodriguez R.N. (23:45 11/02/2019)][Electronically signed by Nithin Vargas MD (07:13 11/03/2019)][Electronically locked by Eliza Rodriguez R.N. (23:45 11/02/2019)] Name Value Range Interpretation Code Description Data Maria Guadalupe rce(s) Supporting Document(s) ID Date Data Source [id number] 11/02/2019 09:07:00 PM EDT [facility] 1 Medication Reconciliation Report [facility] Emergency Department [address] [place] [address] Phone #: ext- [phone] 11/02/2019 20:57 Patient: VAISHALI CHAVEZ Sex: F : 2000 Age: 19yWeight: 50.3 kgHeight/Length: 63 in.BMI: 19.6ALLERGIES: No Known Drug AllergyThe patient's Home Medications are listed below:NONE.The source(s) of the original Home Medication information:patientThe following Medications were given to the patient in the Emergency Department:NS [IV] IV Fluids bolus 1000 mL wide open, administered: 11/02/2019 10:37:00 PMROCEPHIN (1GM/50ML) [IVPB] IVPB bolus 0, then 1 gm 100 mL/hr, administered: 11/02/2019 10:37:00 PMToradol [IVP] IVP 30 mg, administered: 11/02/2019 10:38:00 PMGI Cocktail [PO] PO 50 mL, administered: 11/02/2019 11:34:00 PMThe following Medications were prescribed to the patient:Keflex 500 mg: every 8 hours. No refill. Substitution is permissible. -- Nithin Vargas MD Name Value Range Interpretation Code Description Data Maria Guadalupe rce(s) Supporting Document(s) ID Date Data Source [id number] 11/02/2019 09:07:00 PM EDT [facility] 1 Medication Administration Record [facility] Emergency Department [address] [place] [address] Phone #: ext- [phone] 11/02/2019 20:57 Patient: VAISHALI CHAVEZ Sex: F : 2000 Age: 19yWeight: 50.3 kgHeight/Length: 63 inBMI: 19.6ALLERGIES: No Known Drug Allergy Date/Time Medication Administered Medication OrderedStart NS [IV] IV NS 1000 mL Bolus : Bolus 596862:37 11/02/2019 Dose: IV Fluids mL (X1)Eliza Rodriguez RTonya Bolus: 1000 mL wide open---- Dispensed: 1000 mL bagStop Site: #1 left AC23:35 11/02/2019Eliza Rodriguez RTonyaStart ROCEPHIN (1GM/50ML) [IVPB] Rocephin (1gm/50mL) IVPB 809449:37 11/02/2019 (CEFTRIAXONE SODIUM) mg with Dextrose 50 ml spike Eliza Acosta R.NRachel Dose: 1 gm IVPB (D5W)---- Rate: 100 mL/hrStop Dispensed: 50 mL bag23:07 11/02/2019 Site: #1 left Eliza Guerrero R.N.Given TORADOL [IVP] (KETOROLAC Toradol IVP 30 mg (NOW x1)22:38 11/02/2019 TROMETHAMINE)Eliza Rodriguez R.N. Dose: 30 mg IVP Site: #1 left ACGiven GI COCKTAIL [PO] (CALCIUM GI Cocktail PO 50 mL with23:34 11/02/2019 CARBONATE ANTACID) Lidocaine Viscous Mouth/ThroatEliza Rodriguez R.N. Dose: 50 mL Oral Suspension PO 10 mL, Maalox Oral 30 mL, Oral 10 mL Name Value Range Interpretation Code Description Data Maria Guadalupe rce(s) Supporting Document(s) ID Date Data Source [id number] 11/02/2019 09:07:00 PM EDT [facility] 1 General Instructions [facility] Emergency Department [address] [place] [address] Phone #: ext- [phone] 11/02/2019 20:57 Patient: VAISHALI CHAVEZ Sex: F : 2000 Age: 19yAcute epigastric abdominal pain of unknown cause.Vomiting with nausea.Mild dehydrationAcute urinary tract infection with cystitis. No hematuria.INSTRUCTIONSDo not work for two days until released.(bland diet for the next 24 hours. return if worse or any new symptoms. Follow up with your primary carephysician tomorrow. take keflex 3 times a day for 7 days.).Your Current Medications: .No home medication.Prescription Medications:Keflex 500 mg: every 8 hours. No refill. Substitution is permissible.Follow-up:Follow up with doctor in one day even if well. Call for an appointment. Reason for referral: evaluation.Summary of care provided to patient via paper.Understanding of the discharge instructions verbalized by patient. ADDITIONAL INFORMATIONUnknown Causes of Abdominal Pain (Female) 2 General Instructions [facility] Emergency Department [address] [place] [address] Phone #: ext- [phone] 11/02/2019 20:57 Patient: VAISHALI CHAVEZ Sex: F : 2000 Age: 19yThe exact cause of your belly (abdominal) pain is not clear. This does not mean that this is somethingto worry about. Everyone likes to know the exact cause of the problem. But sometimes with bellypain, there is no clear-cut cause, and this could be a good thing. The good news is that yoursymptoms can be treated, and you will feel better.Your condition does not seem serious now. But sometimes the signs of a serious problem may takemore time to appear. For this reason, it is important for you to watch for any new symptoms,problems, or worsening of your condition.Over the next few days, the abdominal pain may come and go. Or it may be constant. Other commonsymptoms can include nausea and vomiting. Sometimes it can be difficult to tell if you feel nauseous.You may just feel bad and not connect that feeling to nausea. Constipation, diarrhea, and a fever maygo along with the pain.The pain may continue even if treated correctly over the following days. Depending on how things go,sometimes the cause can become clear and may need more or different treatment. Additionalevaluations, medicines, or tests may also be needed.Home careYour healthcare provider may prescribe medicine for pain, symptoms, or an infection. Follow thehealthcare provider's instructions for taking these medicines. 3 General Instructions [facility] Emergency Department [address] [place] [address] Phone #: ext- [phone] 11/02/2019 20:57 Patient: VAISHALI CHAVZE Sex: F : 2000 Age: 19yGeneral care Rest as much as you can until your next exam. No strenuous activities. Try to find positions that ease discomfort. A small pillow placed on the abdomen may help relieve pain. Something warm on your abdomen (such as a heating pad) may help, but be careful not to burn yourself.Diet Don't force yourself to eat, especially if having cramps, vomiting, or diarrhea. Water is important so you don't get dehydrated. Soup may also be good. Sports drinks may also help, especially if they are not too acidic. Don't drink sugary drinks as this can make things worse. Take liquids in small amounts. Don't guzzle them. Caffeine sometimes makes the pain and cramping worse. Don't take dairy products if you have vomiting or diarrhea. Don't e at large amounts at a time. Wait a few minutes between bites. Eat a diet low in fiber (called a low-residue diet). Foods allowed include refined breads, white rice, fruit and vegetable juices without pulp, tender meats. These foods will pass more easily through the intestine. Don't have whole-grain foods, whole fruits and vegetables, meats, seeds and nuts, fried or fatty foods, dairy, alcohol and spicy foods until your symptoms go away.Follow-up careFollow up with your healthcare provider, or as advised, if your pain does not begin to improve in thenext 24 hours.Call [phone] [phone] if any of these occur: Trouble breathing Confusion Fainting or loss of consciousness Rapid heart rate 4 General Instructions [facility] Emergency Department [address] [place] [address] Phone #: ext- [phone] 11/02/2019 20:57 Patient: VAISHALI CHAVEZ Sex: F : 2000 Age: 19y SeizureWhen to seek medical adviceCall your healthcare provider right away if any of these occur: Pain gets worse or moves to the right lower abdomen New or worsening vomiting or diarrhea Swelling of the abdomen Unable to pass stool for more than 3 days Fever of 100.4F (38C) or higher, or as directed by your healthcare provider. Blood in vomit or bowel movements (dark red or black color) Yellow co karla of eyes and skin (jaundice) Weakness, dizziness Chest, arm, back, neck, or jaw pain Unexpected vaginal bleeding or missed period Can't keep down liquids or water and you are getting dehydrated 5550-3632 [employer]. [address] [place] [address]. All rights reserved. This information is not intended as asubstitute for professional medical care. Always follow your healthcare professional's instructions.Bladder Infection, Female (Adult) 5 General Instructions [facility] Emergency Department [address] [place] [address] Phone #: ext- [phone] 11/02/2019 20:57 Patient: VAISHALI CHAVEZ Sex: F : 2000 Age: 19yUrine is normally doesn't have any bacteria in it. But bacteria can get into the urinary tract from theskin around the rectum. Or they can travel in the blood from elsewhere in the body. Once they are inyour urinary tract, they can cause infection in the urethra (urethritis), the bladder (cystitis), or thekidneys (pyelonephritis).The most common place for an infection is in the bladder. This is called a bladder infection. This isone of the most common infections in women. Most bladder infections are easily treated. They arenot serious unless the infection spreads to the kidney.The phrases "bladder infection," "UTI," and "cystitis" are often used to describe the same thing. Butthey are not always the same. Cystitis is an inflammation of the bladder. The most common cause ofcystitis is an infection.SymptomsThe infection causes inflammation in the urethra and bladder. This causes many of the symptoms.The most common symptoms of a bladder infection are: Pain or burning when urinating Having to urinate more often than usual Urgent need to urinate Only a small amount of urine comes out Blood in urine Abdominal discomfort. This is usually in the lower abdomen above the pubic bone. 6 General Instructions [facility] Emergency Department [address] [place] [address] Phone #: ext- [phone] 11/02/2019 20:57 Patient: VAISHALI CHAVEZ Sex: F : 2000 Age: 19y Cloudy urine Strong- or bad-smelling urine Unable to urinate (urinary retention) Unable to hold urine in (urinary incontinence) Fever Loss of appetite Confusion (in older adults)CausesBladder infections are not contagious. You can't get one from someone else, from a toilet seat, orfrom sharing a bath.The most common cause of bladder infections is bacteria from the bowels. The bacteria get onto theskin around the opening of the urethra. From there, they can get into the urine and travel up to thebladder, causing inflammation and infection. This usually happens because of: Wiping improperly after urinating. Always wipe from front to back. Bowel incontinence Procedures such as having a catheter inserted Older age Not emptying your bladder. This can allow bacteria a chance to grow in your urine. Dehydration Constipation Sex Use of a diaphragm for controlTreatmentBladder infections are diagnosed by a urine test. They are treated with antibiotics and usually clear upquickly without complications. Aisha tment helps prevent a more serious kidney infection.Medicines 7 General Instructions [facility] Emergency Department [address] [place] [address] Phone #: ext- [phone] 11/02/2019 20:57 Patient: VAISHALI CHAVEZ Sex: F : 2000 Age: 19yMedicines can help in the treatment of a bladder infection: Take antibiotics until they are used up, even if you feel better. It is important to finish them to make sure the infection has cleared. You can use acetami nophen or ibuprofen for pain, fever, or discomfort, unless another medicine was prescribed. If you have chronic liver or kidney disease, talk with your healthcare provider before using these medicines. Also talk with your provider if you've ever had a stomach ulcer or gastrointestinal bleeding, or are taking blood-thinner medicines. If you are given phenazopydridine to reduce burning with urination, it will cause your urine to become a bright orange color. This can stain clothing.Care and preventionThese self-care steps can help prevent future infections: Drink plenty of fluids to prevent dehydration and flush out your bladder. Do this unless you must restrict fluids for other health reasons, or your doctor told you not to. Proper cleaning after going to the bathroom is important. Wipe from front to back after using the toilet to prevent the spread of bacteria. Urinate more often. Don't try to hold urine in for a long time. Wear loose-fitting clothes and cotton underwear. Avoid tight-fitting pants. Improve your diet and prevent constipation. Eat more fresh fruit and vegetables, and fiber, and less junk and fatty foods. Avoid sex until your symptoms are gone. Avoid caffeine, alcohol, and spicy foods. These can irritate your bladder. Urinate right after intercourse to flush out your bladder. If you use control pills and have frequent noemí dder infections, discuss it with your doctor.Follow-up careCall your healthcare provider if all symptoms are not gone after 3 days of treatment. This is especiallyimportant if you have repeat infections.If a culture was done, you will be told if your treatment needs to be changed. If directed, you cancall to find out the results.If X-rays were done, you will be told if the results will affect your treatment. 8 General Instructions [facility] Emergency Department [address] [place] [address] Phone #: ext- [phone] 11/02/2019 20:57 ------- [id number] Sex: F : 2000 Age: 19yCall 911Call 911 if any of the following occur: Trouble breathing Hard to wake up or confusion Fainting or loss of consciousness Rapid heart rateWhen to seek medical adviceCall your healthcare provider right away if any of these occur: Fever of 100.4F (38.0C) or higher, or as directed by your healthcare provider Symptoms are not better by the third day of treatment Back or belly (abdominal) pain that gets worse Repeated vomiting, or unable to keep medicine down Weakness or dizziness Vaginal discharge Pain, redness, or swelling in the outer vaginal area (labia) 7760-1445 [employer] [address] [place] [address]. All rights reserved. This information is not intended as asubstitute for professional medical care. Always follow your healthcare professional's instructions.Dehydration (Adult)Dehydration occurs when your body loses too much fluid. This may be the result of prolongedvomiting or diarrhea, excessive sweating, or a high fever. It may also happen if you don't drinkenough fluid when you're sick or out in the heat. Misuse of diuretics (water pills) can also be a cause.Symptoms include thirst and decreased urine output. You may also feel dizzy, weak, fatigued, or verydrowsy. The diet described below is usually enough to treat dehydration. In some cases, you mayneed medicine.Home care Drink at least 12 8-ounce glasses of fluid every day to resolve the dehydration. Fluid may include water; orange juice; lemonade; apple, grape, or cranberry juice; clear fruit drinks; electrolyte replacement and sports drinks; and teas and coffee without caffeine. Don't drink 9 General Instructions [facility] Emergency Department [address] [place] [address] Phone #: ext- [phone] 11/02/2019 20:57 Patient: VAISHALI CHAVEZ Sex: F : 2000 Age: 19y alcohol. If you have been diagnosed with a kidney disease, ask your doctor how much and what types of fluids you should drink to prevent dehydration. If you have kidney disease, fluid can build up in the body. This can be dangerous to your health. If you have a fever, muscle aches, or a headache as a result of a cold or flu, you may take acetaminophen or ibuprofen, unless another medicine was prescribed. If you have chronic liver or kidney disease, or have ever had a stomach ulcer or gastrointestinal bleeding, talk with your healthcare provider before using these medicines. Don't take aspirin if you are younger than 18 and have a fever. Aspirin raises the chance for severe liver injury.Follow-up careFollow up with your healthcare provider, or as advised.When to seek medical adviceCall your healthcare provider right away if any of these occur: Continued vomiting Frequent diarrhea (more than 5 times a day); blood (red or black color) or mucus in diarrhea Blood in vomit or stool Swollen abdomen or increasing abdominal pain Weakness, dizziness, or fainting Unusual drowsiness or confusion Reduced urine output or extreme thirst Fever of 100.4F (38C) or higher 9216-5058 [employer] [address] [place] [address]. All rights reserved. This information is not intended as asubstitute for professional medical care. Always follow your healthcare professional's instructions.Cephalexin tablets or capsulesWhat is this medicine?CEPHALEXIN (sef a KRISTAL in) is a cephalosporin antibiotic. It is used to treat certain kinds of bacterialinfections It will not work for colds, flu, or other viral infections.How should I use this medicine?Take this medicine by mouth with a full glass of water. Follow the directions on the prescription label. 10 General Instructions [facility] Emergency Department [address] [place] [address] Phone #: [phone]- [phone] 11/02/2019 20:57 Patient: VAISHALI CHAVEZ Sex: F : 2000 Age: 19yThis medicine can be taken with or without food. Take your medicine at regular intervals. Do not takeyour medicine more often than directed. Take all of your medicine as directed even if you think youare better. Do not skip doses or stop your medicine early.Talk to your parts administrator regarding the use of this medicine in children. While this drug may beprescribed for selected conditions, precautions do apply.What side effects may I notice from receiving this medicine?Side effects that you should report to your doctor or health health care analyst as soon as possible: allergic reactions like skin rash, itching or hives, swelling of the face, lips, or tongue breathing problems pain or trouble passing urine redness, blistering, peeling or loosening of the skin, including inside the mouth severe or watery diarrhea unusually weak or tired yellowing of the eyes, skinSide effects that usually do not require medical attention (report to your doctor or health careprofessional if they continue or are bothersome): gas or heartburn genital or anal irritation headache joint or muscle pain nausea, vomitingWhat may interact with this medicine? probenecid some other antibioticsWhat if I miss a dose?If you miss a dose, take it as soon as you can. If it is almost time for your next dose, take only thatdose. Do not take double or extra doses. There should be at least 4 to 6 hours between doses. 11 General Instructions [facility] Emergency Department [address] [place] [address] Phone #: ext- [phone] 11/02/2019 20:57 Patient: VAISHALI CHAVEZ Sex: F : 2000 Age: 19yWhere should I keep my medicine?Keep out of the reach of children.Store at room temperature between 59 and 86 degrees F (15 and 30 degrees C). Throw away anyunused medicine after the expiration date.What should I tell my health care provider before I take this medicine?They need to know if you have any of these conditions: kidney disease stomach or intestine problems, especially colitis an unusual or allergic reaction to cephalexin, other cephalosporins, penicillins, other antibiotics, medicines, foods, dyes or preservatives or trying to get breast-feedingWhat should I watch for while using this medicine?Tell your doctor or health health care analyst if your symptoms do not begin to improve in a few days.Do not treat diarrhea with over the counter products. Contact your doctor if you have diarrhea thatlasts more than 2 days or if it is severe and watery.If you have diabetes, you may get a false-positive result for sugar in your urine. Check with yourdoctor or health health care analyst.NOTE:This sheet is a summary. It may not cover all possible information. If you have questions about this medicine, talk to your doctor, pharmacist, orhealth care provider. Copyright 2019 [employer] You have been given the following additional information: Abdominal Pain, Unknown Cause, (Female) Bladder Infection, Female (Adult) Dehydration (Adult) Cephalexin tablets or capsules 12 General Instructions [facility] Emergency Department [address] [place] [address] Phone #: ext- [phone] 11/02/2019 20:57 Patient: VAISHALI CHAVEZ Sex: F : 2000 Age: 19yDo not work for two days until released.(Electronically signed by Nithin Vargas MD 11/03/2019 07:13) Name Value Range Interpretation Code Description Data Maria Guadalupe rce(s) Supporting Document(s) ID Date Data Source [id number] 11/02/2019 09:07:00 PM EDT [facility] 1 Clinical Report - Nurses [facility] Emergency Department [address] [place] [address] Phone #: ext- [phone] 11/02/2019 20:57 Patient: VAISHALI CHAVEZ Sex: F : 2000 Age: 19yTRIAGEArrived by private vehicle. Historian: patient. Accompanied by friend and co-worker.Triage time: 20:57 11/02/2019. Acuity: LEVEL 3.Chief Complaint: ABDOMINAL PAIN, NAUSEA and VOMITING.Alert. No acute distress.This started today. Onset. (1800). ( Pt c/o central/epigastric abd pain that staretd at 6 pm, startedvomiting around 1900, over 5 times. Pt denies any other symtpoms). She has had nausea. She hashad vomiting (5+ times). ( Last BM this AM and was normal per pt). No diarrhea or fever.Treatment DROP HAMMER SETTER UP:None.SEPSIS SCREEN: SIRS Screen negative: heart rate greater than 90. Sepsis Screen negative. Nosuspected or confirmed signs of infection present. (21:00 11/02/2019). --21:00 11/02/19 Eliza Rodriguez R.N.20:57 11/02/19. BP: 117/72. MAP: 87. HR: 93. RR: 20. O2 saturation: 100% on room air. Temp: 99.4 F(oral). Pain level now: 12/22. --21:00 11/02/19 Eliza Rodriguez R.N.Weight: 50.3 kg stated. Height/Length: 63 inches Per Patient. BMI: 19.6. --20:57 11/02/19 Eliza Rodriguez R.N.MedicationsNone. --20:59 11/02/19 Eliza Rodriguez R.N.AllergiesNo Known Drug Allergy. --20:59 11/02/19 Eliza Rodriguez R.N.PROBLEMS:no known problems.Medication/allergy information source: the patient. --21:00 11/02/19 Eliza Rodriguez R.N.ADDITIONAL SURGERIES:no known surgeries.HistoryPAST MEDICAL HX: Immunizations: up-to-date. Last normal menstrual period was 1 week ago.SOCIAL HX: Never smoker. No alcohol use or drug use. No recent travel. No known contact with a sick 2 Clinical Report - Nurses [facility] Emergency Department [address] [place] [address] Phone #: ext- [phone] 11/02/2019 20:57 Patient: VAISHALI CHAVEZ Sex: F : 2000 Age: 19y individual. She was offered HIV testing but declined. Patient education was provided. She was offered hepatitis C testing but declined. Patient education was provided. ( COVID screen negative). She has not traveled outside the [place] Infectious disease exposure: No infectious disease exposure. Patient is not a known carrier of tuberculosis, hepatitis, HIV, MRSA or VRE. Patient is not a known carrier of CRE. SELF HARM ASSESSMENT: Self harm assessment was performed. The patient answered "no" to the question(s) "Do you have thoughts of harming or killing yourself?" and "Do you have a plan for harming or killing yourself?". ABUSE ASSESSMENT: Abuse assessment. The patient had positive responses to the question(s) "Do you feel safe in your home?". Abuse denied. No suspicion of abuse. No report of abuse. NUTRITIONAL RISK ASSESSMENT: The nutritional risk assessment revealed no deficiencies. FUNCTIONAL ASSESSMENT: Functional assessment: no impairments noted. LEARNING NEEDS ASSESSMENT: The learning needs assessment revealed no barriers. FALL RISK ASSESSMENT: Fall risk assessment completed. No risk factors identified. SKIN INTEGRITY ASSESSMENT: Skin integrity risk assessment completed. No skin integrity risk identified. --21:00 11/02/19 Eliza Rodriguez R.N. Interventions Identification band on patient. --21:00 11/02/19 Eliza Rodriguez R.N.PHYSICAL ASSESSMENTAmbulatory to room.GENERAL / NEURO / PSYCH: Alert. Oriented X 4. Appears in pain.HEENT: Mucous membranes are pink.RESPIRATORY: Respirations not labored. Breath sounds within normal limits.CVS: Capillary refill less than 2 seconds.GI / : The patient has had nausea. Emesis noted. (please see triage note). Abdomen soft.Abdominal tenderness in the epigastric area and periumbilical area. Guarding present. No tenderness inthe right lower quadrant or rebound tenderness. Bowel sounds within normal limits. No reboundtenderness. ( Pt does c/o pain with urination earlier today.).SKIN: Skin is warm and dry. --21:11/02/19 Eliza Rodriguez R.N.NURSING PROGRESS NOTESNIBP monitor and pulse oximeter placed on patient; monitor alarms on. Patient gowned. Reassurancegiven. Three patient identifiers checked. Call light placed in reach. Side rails up x 2. Bed placed inlowest position. Brakes of bed on. Patient ready for evaluation- ED physician and PA notified. --21: Eliza Rodriguez R.N. 3 Clinical Report - Nurses [facility] Emergency Department [address] [place] [address] Phone #: ext- [phone] 11/02/2019 20:57 Patient: VAISHALI CHAVEZ Sex: F : 2000 Age: 19y21:02 11/02/2019 Site #1 started via IV in the left antecubital space with an 20g angiocath, with aseptictechnique and good blood return; one attempt. Blood drawn: rainbow set. Labeled in the presence of thepatient and sent to the lab. Saline lock flushed with 10 mL saline. --21:11/02/19 Eliza Rodriguez R.N.Patient ID band checked for patient name and birthdate: patient confirmed. Instructions provided to collectclean catch urine and patient verbalized understanding. Clean catch urine collected; sample sent to lab forurinalysis. Specimen labeled in the presence of the patient. --21:23 11/02/19 Eliza Rodriguez R.N.Patient transported to [place] by wheelchair with screen making technician. --22:21 11/02/19 Eliza Rodriguez R.N.21:11/02/19. BP: 166/74. MAP: 104. HR: 85. O2 saturation: 100%. --22:27 11/02/19 Eliza Rodriguez R.N.21:30 11/02/19. BP: 106/65. MAP: 78. HR: 82. O2 saturation: 100%. --22:27 11/02/19 Eliza Rodriguez R.N.21:45 11/02/19. BP: 110/69. MAP: 82. HR: 84. O2 saturation: 100%. --22:27 11/02/19 Eliza Rodriguez R.N.22:00 11/02/19. BP: 110/70. MAP: 83. HR: 77. O2 saturation: 98%. --22:28 11/02/19 Eliza Rodriguez R.N.22:15 11/02/19. BP: 111/87. MAP: 95. HR: 89. O2 saturation: 100%. --22:28 11/02/19 Eliza Rodriguez R.N.Patient returned from CT by wheelchair with screen making technician. --22:34 11/02/19 Eliza Rodriguez R.N.22:37 11/02/2019 Started bag #1 1000 mL IV Fluids NS; bolus of 1000 mL wide open via site #1 via IVpump. Allergies verified and confirmed 5 rights. IV patency established. IV site checked: no pain, redness,or swelling. IV flushed thoroughly pre- and post-medication administration. Information reviewed withpatient including reason for taking this medication, signs of allergic reaction and precautions. Verbalizesunderstanding. --22:37 11/02/19 Eliza Rodriguez R.N.22:37 11/02/2019 Started 1 gm of ROCEPHIN (1GM/50ML) (cefTRIAXone Sodium) IVPB in bag #1 50 mL;at 100 mL/hr via site #1. via IV pump. Allergies verified and confirmed 5 rights. IV patency established. IVsite checked: no pain, redness, or swelling. IV flushed thoroughly pre- and post-medication administration.Information reviewed with patient including reason for taking this medication, signs of allergic reaction andprecautions. Verbalizes understanding. --22:37 11/02/19 Eliza Rodriguez R.N.22:38 11/02/2019 Toradol (Ketorolac Tromethamine) IVP 30 mg given over 2 minute(s) via site #1.Allergies verified and confirmed 5 rights. IV patency established. IV site checked: no pain, redness, orswelling. IV flushed thoroughly pre- and post- medication administration. IVP given by RN. Informationreviewed with patient including reason for taking this medication, signs of allergic reaction and precautions. 4 Clinical Report - Nurses [facility] Emergency Department [address] [place] [address] Phone #: ext- [phone] 11/02/2019 20:57 Patient: VAISHALI CHAVEZ Sex: F : 2000 Age: 19y Verbalizes understanding. --22:40 11/02/19 Eliza Rodriguez RRachelN. The patient reports no complaints and she is calm and resting quietly. Overall patient status is the same- she states feels the same. Patient waiting for CT results. --22:40 11/02/19 Eliza Rodriguez R.N. The patient reports no complaints and she is calm and resting quietly. Overall patient status is improved. She states does not feel better. GI / : The patient reports abdominal pain is still present but improving. --23:24 11/02/19 Eliza Rodriguez R.N. 23:07 11/02/2019 ROCEPHIN (1GM/50ML) IVPB via IV site #1 Discontinued: bag #1 completed. Total amount infused: 50 mL. IV patency established. IV site checked: no pain, redness, or swelling. IV flushed thoroughly. --23:24 11/02/19 Eliza Rodriguez R.N. 23:24 11/02/2019 Toradol IVP Response: no adverse reaction pain is improving. Symptoms have improved the patient feels better. --23:24 11/02/19 Eliza Rodriguez R.N. 23:34 11/02/2019 GI Cocktail (Calcium Carbonate Antacid) PO Oral Suspension 50 mL given. Allergies verified and confirmed 5 rights. Information reviewed with patient including reason for taking this medication, signs of allergic reaction and precautions. Verbalizes understanding. --23:34 11/02/19 Eliza Rodriguez R.N. 22:38 11/02/19. BP: 118/51. MAP: 73. HR: 59. O2 saturation: 99%. --23:43 11/02/19 Eliza Rodriguez R.N. 23:00 11/02/19. BP: 1 20/62. MAP: 81. HR: 75. O2 saturation: 99%. --23:43 11/02/19 Eliza Rodriguez R.N. 23:15 11/02/19. BP: 122/74. MAP: 90. HR: 81. O2 saturation: 98%. --23:43 11/02/19 Eliza Rodriguez R.N. 23:35 11/02/2019 IV Fluids NS via IV site #1 Discontinued: bag #1 STOPPED upon discharge. Total amount infused: 500 mL. IV patency established. IV site checked: no pain, redness, or swelling. IV flushed thoroughly. --23:44 11/02/19 Eliza Rodriguez R.N.DISPOSITION / DISCHARGE Departure time: late entry - 23:40 11/02/2019. Condition at departure: improved and stable. No learning barriers present. Discharge instructions provided and reviewed with the patient. Reviewed warnings (please see paper copy). Reviewed medication(s) side effects, precautions, dosing and course information. Prescription(s) sent electronically to pharmacy ([facility] Reviewed diet. Activity restrictions reviewed. Work note given. Patient verbalized understanding. Written instructions provided in [place]. The patient was discharged by the physician. She was discharged home and accompanied by driver recruiter. She left ambulatory and via private vehicle. Rn Triage driving. --23:44 11/02/19 Eliza Rodriguez R.N. 5 Clinical Report - Nurses [facility] Emergency Department [address] [place] [address] Phone #: ext- [phone] 11/02/2019 20:57 Patient: VAISHALI CHAVEZ Sex: F : 2000 Age: 19y 23:40 11/02/19. BP: 118/70. MAP: 86. HR: 67. RR: 16. O2 saturation: 100% on room air. Temp: 98.1 F (oral). Pain level now: 0/10. --23:44 11/02/19 Eliza Rodriguez R.N. 23:35 11/02/2019 Site #1 removed upon discharge. Bandage applied (2x2 and tape, no bleeding noted, pt tolerated well, clean dry and intact upon d/c.). --23:44 11/02/19 Eliza Rodriguez R.N.Locked/Released at 11/02/2019 23:45 by Eliza Rodriguez R.N. Name Value Range Interpretation Code Description Data Maria Guadalupe rce(s) Supporting Document(s) ID Date Data Source [id number] 11/02/2019 09:07:00 PM EDT [facility] 1 Clinical Report - Physicians/Mid Levels [facility] Emergency Department [address] [place] [address] Phone #: ext- [phone] 11/02/2019 20:57 Patient: VAISHALI CHAVEZ Sex: F : 2000 Age: 19y Arrived- By private vehicle. Historian- patient. Disposition decision: 23:32 11/02/2019.HISTORY OF PRESENT ILLNESS Chief Complaint: ABDOMINAL PAIN. It is described as located in the epigastric area. This started today This started today. Onset. (1800). ( Pt c/o central/epigastric abd pain that started at 6 pm, started vomiting around 1900, over 5 times. Pt denies any other symptoms). She has had nausea. She has had vomiting (5+ times). ( Last BM this AM and was normal per pt). No diarrhea or fever. and is still present. The patient has had nausea and vomiting. No loss of appetite or diarrhea. Similar symptoms previously. None. Recent medical care: Not recently seen/assessed.REVIEW OF SYSTEMSNo constipation, black stools, hematemesis, difficulty with urination or pain with urination. No bloodystools, fever, headache, blurred vision or chest p ain. No difficulty breathing, cough, joint pain, skin rash orchills. No back pain. The patient has not had weight loss.PAST HISTORYSee nurses notes. No history of hypertension, hyperlipidemia or diabetes mellitus. Problems: no known problems. Additional Surgeries: no known surgeries. Medications: None. Allergies: No Known Drug Allergy.SOCIAL HISTORYNo alcohol use or drug use.ADDITIONAL NOTESThe nursing notes have been reviewed.PHYSICAL EXAMVital Signs: 11/02/2019 23:40 BP: 118/70. MAP: 86. HR: 67. RR: 16. O2 saturation: 100% on room air. 2 Clinical Report - Physicians/Mid Levels [facility] Emergency Department [address] [place] [address] Phone #: ext- [phone] 11/02/2019 20:57 [id number] Sex: F : 2000 Age: 19yTemp: 98.1 F. Pain level now: 0/10.11/02/2019 23:15 BP: 122/74. MAP: 90. HR: 81. O2 saturation: 98%.11/02/2019 23:00 BP: 120/62. MAP: 81. HR: 75. O2 saturation: 99%.11/02/2019 22:38 BP: 118/51. MAP: 73. HR: 59. O2 saturation: 99%.11/02/2019 22:15 BP: 111/87. MAP: 95. HR: 89. O2 saturation: 100%.11/02/2019 22:00 BP: 110/70. MAP: 83. HR: 77. O2 saturation: 98%.11/02/2019 21:45 BP: 110/69. MAP: 82. HR: 84. O2 saturation: 100%.11/02/2019 21:30 BP: 106/65. MAP: 78. HR: 82. O2 saturation: 100%.11/02/2019 21:15 BP: 166/74. MAP: 104. HR: 85. O2 saturation: 100%.11/02/2019 20:57 BP: 117/72. MAP: 87. HR: 93. RR: 20. O2 saturation: 100% on room air. Temp: 99.4 F.Pain level now: 12/22. Have been reviewed and appear to be correct. Blood pressure normal. Meanarterial pressure- normal. Heart rate normal. Respiratory rate normal. Temperature normal. Oxygensaturation normal.Appearance: Alert. Oriented X3. No acute distress.Eyes: Pupils equal, round and reactive to light. Eyes normal inspection.ENT: Ears normal. Nose normal.Neck: Normal inspection. Neck supple.CVS: Normal heart rate and rhythm. Heart sounds normal. Pulses normal.Respiratory: No respiratory distress. Painless inspiration. Breath sounds normal. Chest nontender.Abdomen: Soft. Mild tenderness in the epigastric area. Bowel sounds normal. No mass.Back: Normal inspection. No CVA tenderness.Skin: Skin warm and dry. Normal skin color. No rash. Normal skin turgor.Extremities: Extremities exhibit normal ROM. No lower extremity edema.Neuro: Oriented X 3. No motor deficit. No sensory deficit.LABS, X-RAYS, AND EKGLaboratory Tests:CT Abd PEL W/ IV Contrast Only: (CORINNE: 11/02/2019 22:13) ( MsgRcvd 11/02/2019 23:24) In ProgressCT ABDReason(s): Abdominal PainTRANSPORTATION: S IV? IV?(Yes) O2? Oxygen?(No) Ro Exam CT ABD //T// PELVIS W/ IV ONLY [facility] [address] [place] [address] PHON E: [phone] FAX: [phone] Name .................. : KATHY Beyer Acct Number.................. : [id number] ROOM. ................. : VT-02 MR Number ................... : [id number] Stay type ............. : E/R Discharge Date......... ... : Admit Date ......... : 11/02/19 Admit Phys .................... : COONEYNORM Date of ....... : 2000 Family Phys ................... : UNKNOWN Phone .................. : [phone] Age ................................ : 19 Film# .................. .:[id number] Sex ................................. : F Unsigned transcriptions are preliminary reports and do not represent a medical or legal document CT ABD Reason(s): Abdominal Pain 3 Clinical Report - Physicians/Mid Levels [facility] Emergency Department [address] [place] [address] Phone #: ext- [phone] 11/02/2019 20:57 ----- Patient: VAISHALI CHAVEZ Sex: F : 2000 Age: 19yCT OF THE ABDOMEN AND PELVIS WITH IV CONTRAST:INDICATION: Abdominal pain.FINDINGS:The chest space is clear.There is normal contrast-enhanced CT appearance of the liver, spleen, pancreas, adrenal glandsand kidneys.No gallbladder wall thickening or biliary duct dilatation.The visualized bowel is normal in caliber. The appendix is normal. No bowel wall thickening.The bladder and pelvic organs appear normal.No acute osseous abnormality.No lym phadenopathy.IMPRESSION:No acute intra-abdominal process.While performing the above CT examination, radiation dose reduction was accomplishedutilizing automated exposure control, adjusting of the mA and kV based on the patient's bodysize and/or the use of imperative reconstructive techniques.CT dose: 686.4 mGycmContrast agent in mL: 75 [address] [place], [place] [address]PHONE: [phone] FAX: [phone] .................. : KATHY Beyer Acct Number.................. : [id number]. ................. : VT-02 MR Number ................... : [id number] type ............. : E/R Discharge Date......... ... :Admit Date ......... : 11/02/19 Admit Phys .................... : COONEYNORMDate of ....... : 2000 Family Phys ................... : UNKNOWN GUPhone .................. : [phone] Age ................................ : 19Film# .................. .:[id number] Sex ................................. : FUnsigned transcriptions are preliminary reports and do not represent a medical or legal document CT ABD Reason(s): Abdominal PainMethod of administration: Intravenous Electronically Reviewed and Signed ByDCTNAME , SIGNDATE, NH[place] 4 Clinical Report - Physicians/Mid Levels [facility] Emergency Department [address] [place] [address] Phone #: ext- [phone] 11/02/2019 20:57 Patient: VAISHALI CHAVEZ Sex: F : 2000 Age: 19y Transcribe Initials: KEITH , Transcribe Date: 11/02/19 23:22, Dictation Date: <<REPDIST>> Page 2 of 2Urinalysis: (CORINNE: 11/02/2019 21:20) ( MsgRcvd 11/02/2019 21:46) Final results Test Result Flag Units (Reference) UR INALYSIS URINALYSIS SOURCE R COLOR orange (NORMAL: Yello CLARITY hazy (NORMAL: Clear SPEC GRAVITY 1.010 (1.001 - 1.030 pH 7 (5 - 9) GLUCOSE NORM (NORMAL: Negat BILIRUBIN 1 (NORMAL: Negat KETONE NEG (NORMAL: Negat PROTEIN 15 (NORMAL: Negat NITRITE POS (NORMAL: Negat BLOOD 50 A (NORMAL: Negat LEUK EST 500 A (NORMAL: Negat UROBILINOGEN 4 (less than 1.0 MICROSCOPIC See Below WBC TNTC A (NORMAL: NONE RBC 3 - 5 (NORMAL: NONE EPITHELIAL FEW (NORMAL: NONE BACTERIA 1+ SMALL (NORMAL: NONECBC w Diff: (CORINNE: 11/02/2019 21:06) ( MsgRcvd 11/02/2019 21:40) Final results Test Result Flag Units (Reference) CBC W/AUTOMATED DIFF COMPLETE BLOOD COUNT WBC 10.3 10/uL (4.2 - 11.0) RBC 3.80 L 10/uL (4.20 - 5.40) HEMOGLOBIN 11.4 L g/dL (12.0 - 16.0) HEMATOCRIT 35.0 L % (37.0 - 47.0) MCV 92.1 fL (81.0 - 101) MCH 30.0 pg (27.0 - 34.0) MCHC 32.6 g/dL (31.0 - 36.0) RDW 12.7 % (11.5 - 14.5) PLATELETS 257 10/uL (150 - 450) MPV 10.4 fL (7.4 - 10.4) NEUT 82.2 H % (37.0 - 80.0) LYMPH 10.6 L % (25.0 - 40.0) MONO 5.1 % (3.0 - 8.0) EOS 1.5 % (0.0 - 7.0) BASO 0.3 % (0.0 - 2.5) %IG 0.3 H % (0.0 - 0.0) %NRBC 0.0 % (0.0 - 0.0) #NEUT 8.48 H 10/uL (2.00 - 6.90) #LYMPH 1.09 10/uL (0.60 - 3.40) #MONO 0.53 10/uL (0.00 - 0.90) 5 Clinical Report - Physicians/Mid Levels [facility] Emergency Department [address] [place] [address] Phone #: ext- [phone] 11/02/2019 20:57 Patient: VAISHALI CHAVEZ Sex: F : 2000 Age: 19y #EOS 0.15 10/uL (0.00 - 0.70) #BASO 0.03 10/uL (0.00 - 0.20) #IG 0.03 10/uL (0.00 - 0.10) #NRBC 0.00 10/uL (0.00 - 0.00) MANUAL DIFF NOT INDICATED RBC MORPH NOT INDICATEDCMP: (CORINNE: 11/02/2019 21:06) ( MsgRcvd 11/02/2019 21:58) Final results Test Result Flag Units (Reference) COMPREHENSIVE METABOLIC PANEL COMPREHENSIVE METABOLIC PANEL SODIUM 136 mEq/L (134 - 153) POTASSIUM 3.8 mEq/L (3.6 - 5.0) CHLORIDE 101 mEq/L (98 - 107) CO2 24 MEQ/L (22 - 30) GLUCOSE 95 MG/DL (65 - 110) BUN 10 MG/DL (7 - 21) CREATININE 0.7 MG/DL (0.7 - 1.5) BUN/CREAT 14 (8 - 27) TOTAL PROTEIN 7.9 G/DL (6.3 - 8.2) ALBUMIN 4.7 G/DL (3.9 - 5.0) GLOBULIN 3.2 GM/DL (2.4 - 3.2) A/G RATIO 1.5 (0.8 - 2.0) CALCIUM 10.0 MG/DL (8.4 - 10.2) TOTAL BILI 0.9 MG/DL (0.2 - 1.3) ALKALINE PHOS 82 U/L (38 - 126) SGOT/AST 32 U/L (5 - 40) SGPT/ALT 21 U/L (7 - 56) ANION GAP 11.0 mmol/L (8.0 - 16.0) AGE 19 yrs NON- AA GFR >60 mL/min AFR AMER GFR >60 mL/min Male GFR Interprentation 20-49 yrs >60 mL/min Bobqta32-38 yrs >56 mL/min Normal 60- 69 yrs >49 mL/min Normal 70-79yrs>42 mL/min Normal 80 and above >35 mL/min Normal Female GFRInterpretation 20-39 yrs >60 mL/min Normal 40-49 yrs >58 mL/minNormal 50-59 yrs >51 mL/min Normal 60-69 yrs >45 mL/min Pqahmw84-51 yrs >39 mL/min Normal 80 and above >32 mL/min NormalLactic Acid: (CORINNE: 11/02/2019 21:06) ( MsgRcvd 11/02/2019 21:39) Final results Test Result Flag Units (Reference) LACTIC ACID 1.3 MMOL/L (0.2 - 2.2)Lipase: (CORINNE: 11/02/2019 21:06) ( MsgRcvd 11/02/2019 21:58) Final results Test Result Flag Units (Reference) LIPASE 25 U/L (13 - 60)Uric Acid: (CORINNE: 11/02/2019 21:06) ( MsgRcvd 11/02/2019 21:58) Final results Test Result Flag Units (Reference) URIC ACID 3.8 MG/DL (2.5 - 8.5)Beta-HCG, Quant Serum: (CORINNE: 11/02/2019 21:06) ( MsgRcvd 11/02/2019 21:58) Final results Test Result Flag Units (Reference) HCG QUANT <0.5 mIU/mL Interpretation: Less than 5 mU/mL: Negative 6 Clinical Report - Physicians/Mid Levels [facility] Emergency Department [address] [place] [address] Phone #: ext- [phone] 11/02/2019 20:57 Patient: VAISHALI CHAVEZ Sex: F : 2000 Age: 19y 6-10 mU/mL: Borderline (suggest repeat in 48 hours) >10: Positive Approx HCG range (mU/mL) Weeks post LMP 5.4-708 mU/mL 3-4 Weeks 217-25437 mU/mL 5-6 Weeks 4059-060304 mU/mL 7-8 Weeks 43727-526335 mU/mL 9-10 Weeks 83192-86303 mU/mL 12-14 Weeks 73125-48663 mU/mL 15-16 Weeks 8240-87704 mU/mL 17-18 Weeks.PROGRESS AND PROCEDURESCourse of Care: pt presents for evaluation of her abdominal pain. on exam, she has mild epigastricdiscomfort. she has a non-surgical abdomen. labs reviewed and grossly nl. lactic acid and lipase nl.her ua is positive for a uti. ct abd/pelvis shows no acute findings. she was given ivf, zofran and toradol.she felt markedly better. s he was also given rocephin for her uti. pt given work excuse and encouraged tof/u with the base doctor. pt discharged. Patient/family counseled. Disposition: Discharged home in good condition. Condition: good and stable.CLINICAL IMPRESSION Acute epigastric abdominal pain of unknown cause. Vomiting with nausea. Mild dehydration Acute urinary tract infection with cystitis. No hematuria.INSTRUCTIONS Do not work for two days until released. (bland diet for the next 24 hours. return if worse or any new symptoms. Follow up with your primary care physician tomorrow. take keflex 3 times a day for 7 days.). Your Current Medications: . No home medication. Prescription Medications: Keflex 500 mg: every 8 hours. No refill. Substitution is permissible. Follow-up: Follow up with doctor in one day even if well. Call for an appointment. Reason for referral: evaluation. Summary of care provided to patient via paper. Understanding of the discharge instructions verbalized by patient. 7 Clinical Report - Physicians/Mid Levels [facility] Emergency Department [address] [place] [address] Phone #: [phone]- [phone] 11/02/2019 20:57 Patient: VAISHALI CHAVEZ Sex: F : 2000 Age: 19y(Electronically signed by Nithin Vargas MD 11/03/2019 07:13) Name Value Range Interpretation Code Description Data Maria Guadalupe rce(s) Supporting Document(s) ID Date Data Source [id number] 11/02/2019 09:07:00 PM EDT [facility] Addenda for VAISHALI CHAVEZ VisitID: [id number] Date: 10:41pt called and script didn't go thru, [facility] [place](Electronically signed by Fiona Jarrell RN - 11/03/2019 10:41) Name Value Range Interpretation Code Description Data Maria Guadalupe rce(s) Supporting Document(s) ID Date Data Source [id number] 11/07/2019 06:54:00 AM EDT [facility] Name Value Range Interpretation Code Description Data Maria Guadalupe rce(s) Supporting Document(s) CULTURE URINE [facility] _CULTURE URINE_$$[id number]$$[id number]$$[id number]$$051526$$142520$$790149$$864220$$435712$$549368$$ 005605$$980601$$589936$$549634$$588911$$601215$$722050$$247205$$413910$$268899$$ 230996$$747994$$713384$$277936$$308493$$162459$$245570$$[id number] -- Continued on next page --Patient: KATHY Beyer Order: [id number] Page 2Culture: CULTURE URINE Status: Final ==== -- Continued on next page --Patient: KATHY Beyer Order: [id number] Page 2Culture: CULTURE URINE Status: Prelim =====$$[id number]$$[id number] DATE/TIME: 11/06/2019 14:06Culture: CULTURE URINE Status: FinalUrine Culture,Comprehensive: P1No growth in 36 - 48 hours. Previous result entered on 11/05/2019 08:14 ET No growth after 18-24 hours.P1 [facility] #: [id number] [address] [place] [id number] [facility] [id number]Medical Director : Wallace Franklin MD NPI #:Lab Lucy marah : 11/06/[email or web address].XMT.SENT REF 11/07/19.0654.XMT.SENT REF ID Date Data Source [id number] 11/02/2019 09:46:00 PM EDT [facility] Name Value Range Interpretation Code Description Data Maria Guadalupe rce(s) Supporting Document(s) URINALYSIS [facility] chandrakant URINALYSIS SOURCE R [facility] COLOR orange NORMAL: Yellow [facility] CLARITY hazy NORMAL: Clear [facility] Specific gravity of Urine by Test strip 1.010 1.001 - 1.030 [facility] pH 7 5 - 9 [facility] Glucose [Mass/volume] in Urine by Test strip NORM NORMAL: Negat [facility] Bilirubin.total [Presence] in Urine by Test strip 1 NORMAL: Negative [facility] Ketones [Presence] in Urine by Test strip NEG NORMAL: Negative [facility] Protein [Mass/volume] in Urine by Test strip 15 NORMAL: Negat [facility] Nitrite [Presence] in Urine by Test strip POS NORMAL: Negative [facility] BLOOD 50 NORMAL: Negative [facility] Leukocyte esterase [Presence] in Urine by Test strip 500 NITHIN L: Negative [facility] Urobilinogen [Mass/volume] in Urine by Test strip 4 less vu n 1.0 mg/dL [facility] MICROSCOPIC See Below [facility] ital WBC TNTC NORMAL: NONE SEEN [facility] Erythrocytes [#/volume] in Urine by Test strip 3 - 5 NORMAL: NON E SEEN [facility] EPITHELIAL FEW NORMAL: NONE SEEN [facility] Bacteria [Presence] in Urine sediment by Light microscopy 1+ SMALL NORMAL: NONE SEEN [facility] ID Date Data Source [id number] 11/02/2019 09:58:00 PM EDT [facility] Name Value Range Interpretation Code Description Data Maria Guadalupe rce(s) Supporting Document(s) Choriogonadotropin.intact [Units/volume] in Serum or Plasma <0.5 mIU/ mL [facility] Interpr etation: Less than 5 mU/mL: Negative 6-10 mU/mL: Borderline (suggest repeat in 48 hours) >10: Positive Approx HCG range (mU/mL) Weeks post LMP 5.4-708 mU/mL 3-4 Weeks 217-11427 mU/mL 5-6 Weeks 4059-293324 mU/mL 7-8 Weeks 34957-577417 mU/mL 9-10 Weeks 15219-34662 mU/mL 12-14 Weeks 78944-75973 mU/mL 15-16 Weeks 8240- 16620 mU/mL 17-18 Weeks ID Date Data Source [id number] 11/02/2019 09:58:00 PM EDT [facility] Name Value Range Interpretation Code Description Data Maria Guadalupe rce(s) Supporting Document(s) Urate [Mass/volume] in Serum or Plasma 3.8 MG/DL 2.5 - 8.5 [facility] ID Date Data Source [id number] 11/02/2019 09:58:00 PM EDT [facility] Name Value Range Interpretation Code Description Data Maria Guadalupe rce(s) Supporting Document(s) Lipase [Enzymatic activity/volume] in Serum or Plasma 25 U/L 13 - 60 [facility] ID Date Data Source [id number] 11/02/2019 09:58:00 PM EDT [facility] Name Value Range Interpretation Code Description Data Maria Guadalupe e(s) Supporting Document(s) COMPREHENSIVE METABOLIC PANEL [facility] COMPREHENSIVE METABOLIC PANEL Sodium [Moles/volume] in Serum or Plasma 136 mEq/L 134 - 153 [facility] Potassium [Moles/volume] in Serum or Plasma 3.8 mEq/L 3.6 - 5.0 [facility] Chloride [Moles/volume] in Serum or Plasma 101 mEq/L 98 - 107 [facility] Carbon dioxide, total [Moles/volume] in Serum or Plasma 24 MEQ/L 22 - 30 [facility] Glucose [Mass/volume] in Serum or Plasma 95 MG/DL 65 - 110 [facility] BUN 10 MG/DL 7 - 21 [facility] al Creatinine [Mass/volume] in Serum or Plasma 0.7 MG/DL 0.7 - 1.5 [facility] BUN/CREAT 14 8 - 27 [facility] al Protein [Mass/volume] in Serum or Plasma 7.9 G/DL 6.3 - 8.2 [facility] Albumin [Mass/volume] in Serum or Plasma 4.7 G/DL 3.9 - 5.0 [facility] Globulin [Mass/volume] in Serum by calculation 3.2 GM/DL 2.4 - 3.2 [facility] A/G RATIO 1.5 0.8 - 2.0 [facility] Calcium [Mass/volume] in Serum or Plasma 10.0 MG/DL 8.4 - 10.2 [facility] Bilirubin.total [Mass/volume] in Serum or Plasma 0.9 MG/DL 0.2 - 1.3 [facility] Alkaline phosphatase [Enzymatic activity/volume] in Serum or Plasma 82 U/L 38 - 126 [facility] Aspartate aminotransferase [Enzymatic activity/volume] in Serum or Plasma 32 U/L 5 - 40 [facility] Alanine aminotransferase [Enzymatic activity/volume] in Seru m or Plasma 21 U/L 7 - 56 [facility] Anion gap 3 in Serum or Plasma 11.0 mmol/L 8.0 - 16.0 [facility] AGE 19 yrs [facility] NON-AA GFR >60 mL/min [facility] ital AFR AMER GFR >60 mL/min [facility] Male GFR In terprentation 20-49 yrs >60 mL/min Normal 50-59 yrs >56 mL/min Normal 60-69 yrs >49 mL/min Normal 70-79yrs >42 mL/min Normal 80 and above >35 mL/min Normal Female GFR Interpretation 20-39 yrs >60 mL/min Normal 40-49 yrs >58 mL/min Normal 50-59 yrs >51 mL/min Normal 60-69 yrs >45 mL/min Normal 70-79 yrs >39 mL/min Normal 80 and above >32 mL/min Normal ID Date Data Source [id number] 11/02/2019 09:39:00 PM EDT [facility] Name Value Range Interpretation Code Description Data Maria Guadalupe rce(s) Supporting Document(s) CBC W/AUTOMATED DIFF [facility] COMPLETE BLOOD COUNT Leukocytes [#/volume] in Blood by Automated count 10.3 10^3/uL 4.2 - 11.0 [facility] Erythrocytes [#/volume] in Blood by Automated count 3.80 10^6/uL 4. 20 - 5.40 L [facility] Hemoglobin [Mass/volume] in Blood 11.4 g/dL 12.0 - 16.0 L [facility] Hematocrit [Volume Fraction] of Blood by Automated count 35.0 % 3 7.0 - 47.0 L [facility] Erythrocyte mean corpuscular volume [Entitic volume] by Auto mated count 92.1 fL 81.0 - 101 [facility] Erythrocyte mean corpuscular hemoglobin [Entitic mass] by Automated count 30.0 pg 27.0 - 34.0 [facility] Erythrocyte mean corpuscular hemoglobin concentration [Mass/volume] by Automated count 32.6 g/dL 31.0 - 36.0 [facility] Erythrocyte distribution width [Ratio] by Automated count 12.7 % 11.5 - 14.5 [facility] Platelets [#/volume] in Blood by Automated count 257 10^3/uL 150 - 45 0 [facility] Platelet mean volume [Entitic volume] in Blood by Automated count 10.4 fL 7.4 - 10.4 [facility] Neutrophils/100 leukocytes in Blood by Automated count 82.2 % 37. 0 - 80.0 H [facility] Lymphocytes/100 leukocytes in Blood by Manual count 10.6 % 25.0 - 40.0 L [facility] Monocytes/100 leukocytes in Blood by Automated count 5.1 % 3.0 - 8.0 [facility] Eosinophils/100 leukocytes in Blood by Automated count 1.5 % 0.0 - 7.0 [facility] Basophils/100 leukocytes in Blood by Automated count 0.3 % 0.0 - 2.5 [facility] %IG 0.3 % 0.0 - 0.0 [facility] %NRBC 0.0 % 0.0 - 0.0 [facility] al Neutrophils [#/volume] in Blood by Automated count 8.48 10^3/uL 2.00 - 6.90 H [facility] Lymphocytes [#/volume] in Blood by Automated count 1.09 10^3/uL 0.60 - 3.40 [facility] Monocytes [#/volume] in Blood by Automated count 0.53 10^3/uL 0.00 - 0.90 [facility] Eosinophils [#/volume] in Blood by Automated count 0.15 10^3/uL 0.00 - 0.70 [facility] Basophils [#/volume] in Blood by Automated count 0.03 10^3/uL 0.00 - 0.20 [facility] #IG 0.03 10^3/uL 0.00 - 0.10 [facility] #NRBC 0.00 10^3/uL 0.00 - 0.00 [facility] ospital MANUAL DIFF NOT INDICATED [facility] RBC MORPH NOT INDICATED [facility] ID Date Data Source [id number] 11/02/2019 09:39:00 PM EDT [facility] Name Value Range Interpretation Code Description Data Maria Guadalupe rce(s) Supporting Document(s) Lactate [Moles/volume] in Serum or Plasma 1.3 MMOL/L 0.2 - 2.2 [facility] Procedure Social History No Information Vital Signs ID Date Data Source UNK Name Value Range Interpretation Code Description Data Source(s) Diastolic blood pressure 52 mm[Hg] 52 mm[Hg] [facility] ([facility]) Heart rate 74 /min 74 /min [facility] ([facility]) Respiratory rate 18 /min 18 /min [facility] ( [facility]) Oxygen saturation in Arterial blood by Pulse oximetry 100 % 100 % [facility] ([facility]) Systolic blood pressure 90 mm[Hg] 90 mm[Hg] [facility] ([facility])
--- NOTE | 2020-12-25 20:03 | REP ---
INDICATION: Injury COMPARISON: None. TECHNIQUE: AP and lateral right ankle FINDINGS: There is no evidence of acute fracture, dislocation, or intrinsic bone disease.The ankle mortise is anatomic. IMPRESSION: No fracture or dislocation. This two view series is limited as it is less than the optimal standard four view ankle series. <Electronically signed by Khoi Cox > 12/25/201958
[2020-12-26] VITALS: BP 123/69
--- NOTE | 2020-12-26 00:40 | REPVR ---
PROCEDURE INFORMATION: Exam: XR Right Ankle Exam date and time: 12/25/2020 11:25 PM Age: 20 years old Clinical indication: Pain; Ankle; Right; Additional info: Trauma TECHNIQUE: Imaging protocol: XR Right ankle. Views: 3 or more views. COMPARISON: CR Ankle, Ap-Lat RIGHT 12/25/2020 7:36 PM. Prior report has not been made available for review at the time of this emergent interpretation, however was requested. FINDINGS: There is mild soft tissue swelling laterally at the ankle. There may be ankle joint effusion. Distal tibiofibular congruency is maintained. The ankle mortise is preserved. Tibiotalar joint spacing is symmetric. No subchondral defect is seen at the talar dome. No acute displaced fracture is seen at the ankle. IMPRESSION: No radiographic evidence of an acute osseous injury to the right ankle. Other findings discussed above. Electronically signed by: Ovidio Aburto On 12/26/2020 00:39:21 AM
--- OUTSIDE RECORDS SUMMARY | 2021-02-19 07:09 | CCD ---
Author Author [facility] Organization [facility] Address Unknown Phone Unavailable Care Team Providers Care Careers Adviser Name Role Phone GABO, F GEORGETTE DO [...] LAURA MD Unavailable Unavailable OBEN, T LAURA Unavailable Unavailable Rosy FOSTER MD Unavailable Unavailable Rosy FOSTER MD Unavailable Unavailable Rosy FOSTER MD Unavailable Unavailable Re-disclosure Warning The records [...] is protected by Article 27-F of the [facility] Public Health law. If you continue you may have access to information: Regarding HIV / AIDS; Provided by facilities licensed or operated by the [facility] Office of Mental Health; or Provided by the [facility] Office for People With Developmental Disabilities. If such information is present, then the following [facility] mandated warning applies: This information has been [...] law may result in a fine or intermediate sentence or both. A general authorization for the release of medical or other information is NOT sufficient authorization for further disc losure. Encounters Encounter Providers Location Date Indications Data Source(s ) Outpatient Attender: LAURA FOSTER MD 03/20/19 08:43:00 AM EST - 03/20/2020 08:43:[address] [facility] Outpatient Attender: LAURA FOSTER MD Family Practice 03/20/2020 08:00:0 0 AM EST [facility] ([facility]) Emergency Attender: GEORGETTE AYON DO 2019 07:45:00 PM EST - 02/24/2020 10:18:[address] [facility] Patient discharged. Medications No Information Insurance Providers Payer name Policy type / Coverage type Policy ID Covered republican ID Covered republican's relationship to gibson Policy [place] Plan Information [facility] [id number] SP [id number] [facility] [id number] SP [id number] [facility] [id number] 18 [id number] [facility] - PHYSICIAN [id number] 18 [id number] [facility] - O/P [id number] Problems, Conditions, and Diagnoses Code Display Name Description Problem Type Effective Dates Data Source(s) Z3A01 Less than 8 weeks gestation of Less than 8 weeks gestation of Diagnosis 02/24/2020 07:45:[address] [facility] R102 Pelvic and perineal pain Pelvic and perineal pain Diag nosis 02/24/2020 07:45:[address] [facility] [id number] Other specified related condit ions, first trimester Other specified related conditions, first trimester Diagnosis 02/24/2020 07:45:[address] [facility] Surgeries/Procedures No Information Results ID Date Data Source [id number] 08/30/2020 01:08:00 AM EDT [facility] Name Value Range Interpretation Code Description Data Maria Guadalupe rce(s) Supporting Document(s) SARS coronavirus 2 RNA [Presence] in Res piratory specimen by EMMIE with probe detection NEGATIVE [facility] This lab was ordered by [facility] a nd reported by [facility]. ID Date Data Source [id number] 03/20/2020 08:00:00 AM EST [facility] ([facility]) Name Value Range Interpretation Code Description Data Maria Guadalupe rce(s) Supporting Document(s) Color of Urine Laboratory test result [facility] ([facility]) Spec [place] 1.020 [facility] ([facility]) Appearance of Urine Laboratory test result [facility] ([facility]) pH of Urine by Test strip 5 [facility] NT ([facility]) Leukocytes Laboratory test result [facility] ([facility]) Nitrate [Presence] in Urine Laboratory test result [facility] ([facility]) Protein [Presence] in Urine by Test strip Laboratory test result [facility] ([facility]) Ketones [Presence] in Urine by Test strip Laboratory test result [facility] ([facility]) Inhouse Glucose Laboratory test result [facility] ([facility]) Urobilinogen Laboratory test result [facility] ([facility]) Bilirubin.total [Presence] in Urine by Test strip Laboratory test res ult [facility] ([facility]) Blood type and Indirect antibody screen panel - Blood Laboratory test result [facility] ([facility]) ID Date Data Source [id number] 02/24/2020 07:45:00 PM EST [facility] 1 OrderSheet [facility] Emergency Department [address] [place] [address] Phone #: [phone]- [phone] 02/24/2020 19:40 Patient: VAISHALI CHAVEZ Sex: F [...] 02/24/2020 20:17 Dylon OrozcoRANSVAGINAL Clark Beltrán ; Ilda(NON OB)(Oxygen?(No)) Reason for Study: PainMEDICATION/IV/DRIP/FLUID ORDERSOrder Description Priority Entered Acknowledged InitialedGENERAL ORDERSOrder Description Priority Entered Acknowledged Initialed[Electronically signed by Clark Beltrán (22:03 02/24/2020)][Electronically signed by Chanda Orozco R.N. (22:18 02/24/2020)][Electronically locked by Chanda Orozco R.N. (:18 02/24/2020)] Name Value Range Interpretation Code Description Data Maria Guadalupe rce(s) Supporting Document(s) ID Date Data Source [id number] 02/24/2020 07:45:[address] [facility] 1 Medication Reconciliation Report [facility] Emergency Department [address] [place] [address] Phone #: ext- [phone] 02/24/2020 19:40 Patient: [...] rce(s) Supporting Document(s) ID Date Data Source [id number] 02/24/2020 07:45:[address] [facility] 1 Medication Administration Record [facility] Emergency Department [address] [place] [address] Phone #: ext- [phone] 02/24/2020 19:40 Patient: VAISHALI CHAVEZ Sex: F : 2000 Age: 19yWeight: 50.3 kgHeight/Length: 63 inBMI: 19.6ALLERGIES: NoneDate/Time Medication Administered Medication Ordered Name Value Range Interpretation Code Description Data Maria Guadalupe rce(s) Supporting Document(s) ID Date Data Source [id number] 02/24/2020 07:45:00 PM EST [facility] 1 General Instructions [facility] Emergency Department [address] [place] [address] Phone #: ext- [phone] 02/24/2020 19:40 Patient: [...] Tiredness or fatigue 2 Ge neral Instructions [facility] Emergency Department [address] [place] [address] Phone #: ext- [phone] 02/24/2020 19:40 Patient: [...] your healthcare provider.Follow-up care 3 General Instructions [facility] Emergency Department [address] [place] [address] Phone #: ext- [phone] 02/24/2020 19:40 Patient: VAISHALI CHAVEZ Sex: F : 2000 Age: 19yCall your healthcare provider to arrange for care. care is important. You can seeyour family provider, a specialist (open hearth worker), a column precaster, or a primary care clinic.When to seek medical adviceCall your healthcare provider right away if any of these occur: Vaginal bleeding Pain in your belly (abdomen) or back that is moderate or severe Lots of vomiting, or you can't keep any fluids down for 6 hours Burning feeling when you urinate Headache, dizziness, or rapid weight gain Fever Vision changes or blurred vision [employer] [address] [place] [address]. All rights reserved. This information is not intended as asubstitute for professional medical care. Always follow your healthcare professional's instructions. You have been given the following additional information: , New Dx(Electronically signed by Clark Beltrán 02/24/2020 22:03) Name Value Range Interpretation Code Description Data Maria Guadalupe rce(s) Supporting Document(s) ID Date Data Source [id number] 02/24/2020 07:45:00 PM EST [facility] 1 Clinical Report - Nurses [facility] Emergency Department [address] [place] [address] Phone #: ext- [phone] 02/24/2020 19:40 Patient: [...] distress.Onset. (wednesday). She has had abdominal pain.Treatment RESPIRATORY THERAPY TECHNICIAN:None.SEPSIS SCREEN: SIRS SCREEN NEGATIVE. SEPSIS SCREEN NEGATIVE. No suspected or confirmedsigns of infection present. --19:45 02/24/20 Chanda Orozco R.N.19:41 02/24/20. BP: 124/83. MAP: 96. HR: 85. RR: 16. O2 saturation: 100%. Temp: 97.9 F. Pain levelnow: 08/22. --19:45 02/24/20 Chanda Orozco R.N.Weight: 50.3 kg [...] of tuberculosis, 2 Clinical Report - Nurses [facility] [address] [place] [address] Phone #: ext- [phone] 02/24/2020 19:40 Patient: [...] 02/24/20 Chanda Orozco R.N. [facility] --20:17 02/24/20 Chanda Orozco R.N. 3 Clinical Report - Nurses [facility] Department [address] [place], [place] [address] Phone #: ext- [phone] 02/24/2020 19:40 Patient: VAISHALI CHAVEZ Sex: F : 2000 Age: 19y Patient walked back from [facility] with tech. --20:39 02/24/20 Chanda Orozco R.N. 20:41 02/24/20. BP: 137/79. MAP: 98. HR: 81. RR: 16. O2 saturation: 100%. --20:41 02/24/[address] [facility] Tech, Suki NIMO Tech1 ( awaiting results of ultrasound resting [...] Patient verbalized understanding. Written instructions provided in Lithuanian. The patient was discharged home and accompanied by double cutter. She left ambulatory and via private vehicle. Canary Breeder driving. --22:18 02/24/20 Chanda Orozco R.N. 22:17 02/24/20. BP: 135/78. MAP: 97. HR: 74. RR: 18. O2 saturation: 99%. Temp: 98.1 F. Pain level now: 03/24. --22:18 02/24/20 Chanda Orozco R.N. Departure time: 22:18 02/24/2020. --22:18 02/24/20 Chanda Orozco R.N.Locked/Released at 02/24/2020 22:18 by Chanda Orozco R.N. Name Value Range Interpretation Code Description Data Maria Guadalupe e(s) Supporting Document(s) ID Date Data Source [id number] 02/24/2020 07:45:00 PM EST [facility] 1 Clinical Report - Physicians/Mid Levels [facility] Department [address] [place] [address] Phone #: ext- [phone] 02/24/2020 19:40 Patient: [...] edema. 2 Clinical Report - Physicians/Mid Levels [facility] [address] [place] [address] Phone #: ext- [phone] 02/24/2020 19:40 Patient: VAISHALI CHAVEZ Sex: F : 2000 Age: 19yNeuro: Oriented X 3. No motor deficit. No sensory deficit.LABS, X-RAYS, AND EKGLaboratory Tests:Beta-HCG, Quant Serum: (CORINNE: 02/24/2020 21:08) ( MsgRcvd 02/24/2020 21:50) Final results Test Result Flag Units (Reference) HCG QUANT 569.7 mIU/mL Interpretation: Less than 5 mU/mL: Negative6-10 mU/mL: Borderline (suggest repeat in 48 hours) >10: PositiveApprox HCG range (mU/mL) Weeks post LMP 5.4-708 mU/mL 3-4 Sngzu905-19952 mU/mL 5-6 Weeks 4059-415415 mU/mL 7-8 Vxjik19125-886501 mU/mL 9-10 Weeks 52104-71818 mU/mL 12-14 Qpkty38400-19050 mU/mL 15-16 Weeks 8240-30241 mU/mL 17-18 WeeksType Rh: (CORINNE: 02/24/2020 21:08) ( MsgRcvd 02/24/2020 22:00) Final results Test Result Flag Units (Reference) ABO GROUP O RH TYPE POSITIVE { ABO/RH REENTER O POSITIVEUS TRANSVAGINAL (NON OB): (CORINNE: 02/24/2020 20:09) ( MsgRcvd 02/24/2020 21:21) Final results Exam US TRANSVAGINAL(NON OB) [place] [address] ---------NAME--------- NUMBER SEX AGE ADMIT DISC. XRAY# F/C TYPE KATHY Beyer [id number] F 19 02/24/20 [id number] SB4 E/R DATE OF : 2000 M/R# [id number] #: [id number] TR-04 LOCATION: EMERGENCY DEPT TRANSCRIBED: 02/24/20 21:19 IF US TRANSVAGINAL(NON OB) [id number] COMPLETED:02/24/20 20:40 MCM 90 Reason(s): Pain PHYSICIAN: [...] cavity is noted. 3 Clinical Report - Physicians/Mid Levels [facility] Department [address] [place] [address] Phone #: ext- [phone] 02/24/2020 19:40 [id number] : 2000 Age: 19y Endometrial [...] via modemUS Pelvis: (CORINNE: 02/24/2020 20:02) ( [facility] 02/24/[facility] 20:08) CanceledReason(s): PainReason(s): PainTRANSPORTATION: WC IV? O2? Oxygen?(No) [facility] ([facility]NE: 02/24/2020 19:48) [facility] 02/24/[facility] 20:12) Final results Test Result Flag [...] NONEBeta-HCG, Qual Urine: (CORINNE: 02/24/2020 19:48) ( MsgRcvd 02/24/2020 20:10) Final results Test Result Flag Units (Reference) HCG URINE QUAL POSITIVE (NORMAL: NEGAT HCG URINE QL REENTER POSITIVE (NORMAL: NEGAT { KIT LOT # [id number] ){ KIT EXP [id number] ){ PROCEDURAL CONTROL VALID) 4 Clinical Report - Physicians/Mid Levels [facility] Emergency Department [address] [place] [address] Phone #: ext- [phone] 02/24/2020 19:40 -- Patient: VAISHALI CHAVEZ Sex: F : 2000 Age: 19y.PROGRESS AND PROCEDURESCourse of Care: ED care transferred. Brief hx: abdominal cramping without bleeding. Expecteddisposition: discharge from ED.CLINICAL IMPRESSION First trimester .(Electronically signed by Clark Beltrán 02/24/2020 22:03) Name Value Range Interpretation Code Description Data Maria Guadalupe rce(s) Supporting Document(s) ID Date Data Source [id number] 02/24/2020 09:19:00 [place] [address] ---------NAME--------- NUMBER SEX AGE ADMIT DISC. XRAY# F/C TYPE KATHY Beyer [id number] F 19 02/24/20 [id number] SB4 E/R DATE OF : 2000 M/R# [id number] PH#: [phone] TR-04 LOCATION: E MERGENCY DEPT TRANSCRIBED: 02/24/20 21:19 IF US TRANSVAGINAL(NON OB) [id number] COMPLETED:02/24/20 20:40 MCM 90 Reason(s): Pain PHYSICIAN: [...] rce(s) Supporting Document(s) ID Date Data Source [id number] 02/24/2020 10:00:[address] [facility] Name Value Range Interpretation Code Description Data Maria Guadalupe rce(s) Supporting Document(s) ABO group [Type] in Blood O [facility] Rh [Type] in Blood POSITIVE [facility] { ABO/RH REENTER O POSITIVE ID Date Data Source [id number] 02/24/2020 09:50:[address] [facility] Name Value Range Interpretation Code Description Data Maria Guadalupe rce(s) Supporting Document(s) Choriogonadotropin.intact [Units/volume] in Serum or Plasma 569.7 mIU /mL [facility] Interpr etation: Less than 5 mU/mL: Negative 6-10 mU/mL: Borderline (suggest repeat in 48 hours) >10: Positive Approx HCG range (mU/mL) Weeks post LMP 5.4-708 mU/mL 3-4 Weeks 217-81732 mU/mL 5-6 Weeks 4059-487791 mU/mL 7-8 Weeks 75314-121991 mU/mL 9-10 Weeks 25910-21948 mU/mL 12-14 Weeks 28603-28693 mU/mL 15-16 Weeks 8240- 98859 mU/mL 17-18 Weeks ID Date Data Source [id number] 02/24/2020 08:12:[address] [facility] Name Value Range Interpretation Code Description Data Maria Guadalupe rce(s) Supporting Document(s) [facility] S[facility] R [facility] al COLOR yellow NORMAL: Yellow [facility] CLARITY clear NORMAL: Clear [facility] Specific gravity of Urine by Test strip 1.010 1.001 - 1.030 [facility] pH 6.5 5 - 9 [facility] al Glucose [Mass/volume] in Urine by Test strip NORM NORMAL: [facility] Bilirubin.total [Presence] in Urine by Test strip NEG NORMAL: Negative [facility] Ketones [Presence] in Urine by Test strip NEG NORMAL: Negative [facility] Protein [Mass/volume] in Urine by Test strip NEG NORMAL: [facility]VA [facility] Nitrite [Presence] in Urine by Test strip NEG NORMAL: Negative [facility] BLOOD 10 NORMAL: Negative [facility] Leukocyte esterase [Presence] in Urine by Test strip NEG NITHIN L: Negative [facility] Urobilinogen [Mass/volume] in Urine by Test strip NOR less vu n 1.0 mg/dL [facility] MICROSCOPIC See Below [facility] ital WBC None Seen NORMAL: NONE SEEN [facility] Erythrocytes [#/volume] in Urine by Test strip 0 - 1 NORMAL: NON E SEEN [facility] EPITHELIAL FEW NORMAL: NONE SEEN [facility] Bacteria [Presence] in Urine sediment by Light microscopy No ne Seen NORMAL: NONE SEEN [facility] ID Date Data Source [id number] 02/24/2020 08:10:00 PM EST [facility] Name Value Range Interpretation Code Description Data Maria Guadalupe rce(s) Supporting Document(s) HCG URINE QUAL POSITIVE NORMAL: NEGATIVE [facility] HCG URINE QL REENTER POSITIVE NORMAL: NEGATIVE [facility] { KIT LOT # [id number] ){ KIT EXP DATE 12-18-20 ){ PROCEDURAL CONTROL VALID ) Procedure Social History No Information Vital Signs ID Date Data Source UNK Name Value Range Interpretation Code Description Data Source(s) Systolic blood pressure 90 mm[Hg] 90 mm[Hg] M [facility] ([facility]) Diastolic blood pressure 52 mm[Hg] 52 mm[Hg] [facility] ([facility]) Heart rate 74 /min 74 /min [facility] ([facility]) Respiratory rate 18 /min 18 /min [facility] ( [facility]) Oxygen saturation in Arterial blood by Pulse oximetry 100 % 100 % [facility]
== END 2020-12-26 02:28 | disposition left against medical advice (07) ==
LOC: M ED 19:17
DX: Z53.21 Procedure and treatment not carried out due to patient leaving prior to being seen by health care provider (principal)